=== PATIENT | female | born 1925 | race Caucasian/White ===

== ENCOUNTER 2016-10-04 14:39 | Inpatient (IN) | payer OTHER, MEDICARE ==
[~2016-10-04] VITALS: Ht 142.2 cm; Wt 44.9 kg
--- NOTE | 2016-10-04 15:04 | NUR ---
C/O LEFT HIP PAIN S/P FALL AT [facility] X 2, CAUGHT SHOE ON STEP. DENIES DIZZINESS, WEAKNESS, CHEST PAIN PRIOR TO FALL. PMH" LEFT HIP REPLACEMENT 2011.
--- NOTE | 2016-10-04 16:05 | ED MVC/FALL/TRAUMA COMPLAINT ---
History of Present Illness General Chief Complaint: Fall Stated Complaint: FELL TWICE IN [place] Source: patient Exam Limitations: no limitations Allergies Coded Allergies: Sulfa (Sulfonamide Antibiotics) (N/V 10/04/16) Reconcile Medications Acetaminophen 500 MG TABLET 1 TAB PO Q6 PRN PAIN (Reported) Calcium Carbonate (TUMS) 200 MG CALCIUM (500 MG) TAB.CHEW 1 TAB PO DAILY PRN GI (Reported) Dexlansoprazole (Dexilant) 60 MG CAP.DR.BP 1 CAP PO DAILY GI (Reported) Ergocalciferol (Vitamin D2) (Vitamin D2) 2,000 UNIT TABLET 1 TAB PO BID SUPPLEMENT (Reported) Gabapentin 300 MG CAPSULE 1 CAP PO DAILY NERVE PAIN (Reported) Loteprednol Etabonate (Lotemax) 0.5 % DROPS.GEL 1 DROP OD Q6H RIGHT EYE - ULCER (Reported) Magnesium Oxide (Magnesium) 400 MG CAPSULE 1 CAP PO DAILY SUPPLEMENT ( Reported) Metoprolol Tartrate 25 MG TABLET 1 TAB PO BID HEART/BP (Reported) Sertraline HCl 50 MG TABLET 1 TAB PO BID MENTAL HEALTH (Reported) Solifenacin Succinate (Vesicare) 5 MG TABLET 5 MG PO DAILY BLADDER (Reported) Triage Note: C/O LEFT HIP PAIN S/P FALL AT [place] X 2, CAUGHT SHOE ON STEP. DENIES DIZZINESS, WEAKNESS, CHEST PAIN PRIOR TO FALL. PMH" LEFT HIP REPLACEMENT 2011. Triage Nurses Notes Reviewed? yes HPI: This patient is an 89-year-old female who presented to the emergency department today for evaluation of left hip pain status post fall in [facility] today. The patient reported that she caught her shoe on a step in [facility] and fell onto her left hip. She does have a prior left hip replacement from a previous fracture. The patient denied hitting her head or losing consciousness. She is denying any headaches, visual changes, neck pain, or head pain. The patient reported that the pain in her hip gets up to an 8 out of 10 and with movement sometimes radiates to her knee. The pain is throbbing and constant. She denied any numbness or tingling in her extremities. The patient is not on any blood thinners. No precipitating symptoms such as dizziness, nausea, lightheadedness, or diaphoresis. (KERI FROST,HAILEY) Vital Signs & Intake/Output Vital Signs & Intake/Output Vital Signs Date Time Temp Pulse Resp B/P B/P Pulse O2 O2 Flow FiO2 Mean Ox Delivery Rate 10/06 0904 99.0 69 16 112/44 98 Room Air 10/06 0838 84 108/52 10/06 0015 98.4 84 18 108/52 87 Room Air 10/06 0000 94 Room Air 10/05 2131 87 118/50 10/05 1632 98.7 77 18 112/73 95 Room Air ED Intake and Output 10/06 0000 10/05 1200 Intake Total 1090 Output Total 150 Balance 1090 -150 Intake, IV 260 Intake, Oral 830 Number 2 Bowel Movements Output, Urine 150 Past History Travel History Traveled to [place] past 21 day No Medical History Any Pertinent Medical History? see below for history Cardiovascular: AFIB, Gastrointestinal: GASTROPARESISI Hepatic: SCLERODERMA Musculoskeletal: ARTHRITIS RAYNAUDS History of MRSA: No History of VRE: No History of CDIFF: No Pneumonia Vaccine: 03/16/09 Influenza Vaccine: 03/15/11 Surgical History Surgical History: non-contributory Psychosocial History Who do you live with Patient/Self Services at Home None What is your primary language Malay Tobacco Use: Never used ETOH Use: occasional use Family History Hx Contributory? No (HAILEY SAAVEDRA PA-C) Review of Systems Review of Systems Constitutional: Reports: no symptoms. Eyes: Reports: no symptoms. Ears, Nose, Throat, Mouth: Reports: no symptoms. Respiratory: Reports: no symptoms. Cardiovascular: Reports: no symptoms. Gastrointestinal/Abdominal: Reports: no symptoms. Musculoskeletal: Reports: see HPI. Skin: Reports: no symptoms. Neurological/Psychological: Reports: no symptoms. All Other Systems: Reviewed and Negative (HAILEY SAAVEDRA PA-C) Physical Exam Physical Exam General Appearance: well developed/nourished, no apparent distress, alert, awake Comments: Well-developed well-nourished person in no acute distress HEENT: Normal EENT exam, head normocephalic/atraumatic Pupils equally round and reactive to light. Neck: Supple with no midline tenderness Back: Normal inspection Respiratory: No respiratory distress. Speaking in full sentences Left lower extremity: No effusions overlying erythema or ecchymosis to the joint spaces. Full range of motion of the hip, knee, and ankle. Tenderness to palpation over the anterior aspect of the hip. Dorsalis pedis and posterior tibialis pulses 2+ and strong. No calf tenderness Neuro: Alert oriented x3, cranial nerves II through XII grossly intact. Skin: No appreciable rash on exposed skin, skin is warm and dry. Psych: Mood and affect is normal Core Measures ACS in differential dx? No Severe Sepsis Present: No Septic Shock Present: No (KERI FROST,HAILEY) Progress Differential Diagnosis: aoritic dissection, abd injury, C/T/L spine injury, ext injury, ICH, pelvis injury, pnemothorax, spinal cord injury Diagnostic Imaging: Viewed by Me: Radiology Read. Discussed w/RAD: Radiology Read. Radiology Impression: PATIENT: RASHIDA MALLORY PRESENT AGE: 89 PATIENT ACCOUNT NO: [id number] : [birth year] LOCATION: [facility] ORDERING PHYSICIAN: HAILEY SAAVEDRA PA-C SERVICE DATE: 10/04/16 EXAM TYPE: RAD - XRY-FEMUR, LEFT 2 VIEWS; XRY-HIP 2-3 VIEWS, LEFT; XRY-KNEE COMPLETE LEFT EXAMINATION: XR HIP, LEFT XR FEMUR, LEFT XR KNEE, LEFT CLINICAL INFORMATION : Fall, question fracture COMPARISON: Femur and hip 07/15/2012 FINDINGS: AP pelvis, 2 views left hip: An intramedullary paris with associated compression hip screw is visualized within the proximal left femur. The intramedullary paris appears centered within the intramedullary the fracture line of the prior intratrochanteric fracture is no longer visualized. The alignment appears anatomic. There is no evidence for hardware loosening. There is moderate narrowing of the joint space of the right hip with associated degenerative changes along the acetabular roof. There is no visible right hip fracture. The ilioischial and iliopectineal lines on the right are intact. The ilioischial line is intact on the left. However, there is an acute fracture of the inferior pubic ramus on the left with mild inferior displacement. There is mild irregularity of the left acetabulum. This may be related to changes related to left hip hardware. An underlying fracture is difficult to exclude. Frontal and lateral views of the left femur: Intramedullary paris is visualized within the intramedullary canal of the left femur. Single transverse cortical screws present at the level of the inferior diaphysis. There is no evidence of hardware loosening. The intramedullary paris appears centered within the intramedullary canal. The left femur appears intact. 4 views of the left knee: The inferior aspect of the patient's left intramedullary paris is partially imaged. There is no significant joint effusion. The medial and lateral joint spaces appear relatively maintained. There is no acute fracture or subluxation. No radiopaque foreign body. The alignment appears within normal range. IMPRESSION: 1. Acute fracture of the inferior pubic ramus on the left. 2. Intact left femur intramedullary paris with compression screw. 3. Questionable irregularity of the left acetabulum. Underlying fracture is difficult to exclude. 4. Intact left knee. 5. Mild to moderate degenerative changes of the right hip. DICTATED BY: RAGINI SAINI MD DATE/TIME DICTATED:10/04/161709 BATTERY INSPECTOR:GRANT DATE/TIME TRANSCRIBED:10/04/161709 CONFIDENTIAL, DO NOT COPY WITHOUT APPROPRIATE AUTHORIZATION. <Electronically signed in Other Vendor System> SIGNED BY: RAGINI SAINI MD 10/04/16 3547 Initial ED EKG: AFIB, no ST T wave changes, premature ventricular contraction Comments: 10/04/2016 7:39:01 PM: Positive troponin. This patient was officially signed out to Dr. Marie for telemetry admission. Cardiology has been paged. 10/04/2016 7:41:34 PM: I discussed this patient with on-call park aide, Dr. Graham. He reported that he will pass this message along to Dr. Benjamin, this patient's park aide, who will see this patient first thing in the morning for consultation. 10/04/2016 9:26:37 PM: Discussed this patient with on-call orthopedist, Dr. Ott. He will consult. (KERI FROST,HAILEY) Plan of Care: Orders Procedure Date/time Status Heart Healthy Diet 10/06 L Complete Heart Healthy Diet 10/06 D Active MAGNESIUM 10/06 06 Complete CBC WITHOUT DIFFERENTIAL 10/06 06 Complete BASIC ELECTROLYTES PLUS BUN&CR 10/06 0600 Complete Therapeutic Activities 10/06 UNK Complete Neuromuscular Re-ed 10/06 UNK Complete Gait Training 10/06 UNK Complete Discontinue Telemetry/Monitor 10/06 UNK Active Hemoccult 10/06 UNK Active INCENTIVE SPIROMETRY TRX CHG 10/05 UNK Complete NUTRITIONAL CONSULT 10/05 UNK Active Current Medications Sig/Simón Start time Last Medication Dose Stop Time Status Admin Polyethylene Glycol 17 GM DAILY 10/06 1000 AC (Miralax) Melatonin 5 MG AT BEDTIME 10/05 2200 AC 10/05 (Melatonin) 2128 Senna/Docusate Sodium 1 TAB BID PRN 10/05 1545 AC (Senokot S) Oxycodone/ 1 TAB Q4P PRN 10/05 1145 AC 10/06 Acetaminophen 1059 (Percocet) Docusate Sodium 100 MG DAILY 10/05 1000 AC (Colace) Gabapentin 300 MG DAILY 10/05 1000 AC 10/06 (Neurontin) 0838 Metoprolol Tartrate 12.5 MG BID 10/05 1000 AC 10/06 (Lopressor) 0838 Oxybutynin Chloride 2.5 MG DAILY 10/05 1000 AC 10/06 (Ditropan 2.5MG 0838 Tab(1/2 of a 5mg tab)) Omeprazole 40 MG DAILY AC 10/05 0700 AC 10/06 (Prilosec) 0649 Calcium Carbonate 500 MG DAILY NEEDED PRN 10/04 2230 AC (TUMS) Sertraline HCl 50 MG BID 10/04 2228 AC 10/06 (Zoloft) 0838 Cholecalciferol 2,000 IU BID 10/04 222 AC 10/06 (Vitamin D) 0838 Heparin Sodium 5,000 UNIT Q8 10/04 220 AC 10/06 (Porcine) 0650 Acetaminophen 650 MG Q6P PRN 10/04 2100 AC (Tylenol) Morphine Sulfate 2 MG Q8P PRN 10/04 2100 AC 10/05 (Morphine) 0953 Laboratory Tests 10/06/16 0628: Anion Gap 8, Estimated GFR 59 L, BUN/Creatinine Ratio 28.9 H, Magnesium 2.0, CBC w Diff NO MAN DIFF REQ, RBC 2.94 L, MCV 95.7, MCH 31.8 H, RDW 15.2 H, MPV 9.4, Gran % 60.3, Lymphocytes % 26.6, Monocytes % 8.8, Eosinophils % 3.9, Basophils % 0.4, Absolute Granulocytes 3.4, Absolute Lymphocytes 1.5, Absolute Monocytes 0.5, Absolute Eosinophils 0.2, Absolute Basophils 0, PUBS MCHC 33.2 Departure Departure Disposition: STILL A PATIENT Condition: Stable Clinical Impression Primary Impression: Inferior pubic ramus fracture Qualifiers: Encounter type: initial encounter Fracture type: closed Laterality: left Qualified Code: S32.592A - Other specified fracture of left pubis, initial encounter for closed fracture Secondary Impressions: Elevated troponin Referrals: JOHN RUIZ MD (PCP/Family) Departure Forms: Customer Survey General Discharge Information Admission Note Spoke With: RACHEL BLAIR MD Documentation of Exam: Documentation of any treatments & extenuating circumstances including Concerns Regarding Discharge (functional status, medication knowledge or non-compliance, living conditions, etc.) that warrant an admission rather than observation: [ This patient is an 89-year-old female who presented to the emergency department today for evaluation of left hip pain status post fall at [facility]. Inferior pubic rami fracture on the left with possible acetabular involvement. This patient also has an elevated troponin level to 0.11. History of atrial fibrillation, rate controlled at this time. This patient will need telemetry admission for cardiology consultation, possible echocardiogram, trend labs, serial troponin levels, serial EKGs, orthopedic consultation, and close monitoring. Premature discharge could prove medically harmful.] (HAILEY SAAVEDRA PA-C) PA/ACCESS SERVICES LIBRARIAN Co-Sign Statement Statement: ED Attending supervision documentation- [x] I saw and evaluated the patient. I have also reviewed all the pertinent lab results and diagnostic results. I agree with the findings and the plan of care as documented in the PA's/ACCESS SERVICES LIBRARIAN's documentation. [] I have reviewed the ED Record and agree with the PA's/ACCESS SERVICES LIBRARIAN's documentation. [] Additions or exceptions (if any) to the PAs/ACCESS SERVICES LIBRARIAN's note and plan are summarized below: [] (MOLLY BLANCHARD,MANDEEP Godoy) PA/ACCESS SERVICES LIBRARIAN Co-Sign Statement Statement: ED Attending supervision documentation- [x] I saw and evaluated the patient. I have also reviewed all the pertinent lab results and diagnostic results. I agree with the findings and the plan of care as documented in the PA's/ACCESS SERVICES LIBRARIAN's documentation. pt signed out to me... i discussed with hospitalist... pt to be admitted to tele , ruled out, likely will need out patient rehab. [] Additions or exceptions (if any) to the PAs/ACCESS SERVICES LIBRARIAN's note and plan are summarized below: [] (RODY BLANCHARD,PARKER Figueroa) Critical Care Note Critical Care Note Critical Care Time: 30-74 min (PARKER MARIE MD) Secondary Impressions: Elevated troponin Referrals: SARA BLANCHARD,JOHN Newton (PCP/Family) Departure Forms: Customer Survey General Discharge Information Admission Note Spoke With: RACHEL BLAIR MD Documentation of Exam: Documentation of any treatments & extenuating circumstances including Concerns Regarding Discharge (functional status, medication knowledge or non-compliance, living conditions, etc.) that warrant an admission rather than observation: [ This patient is an 89-year-old female who presented to the emergency department today for evaluation of left hip pain status post fall at [facility]. Inferior pubic rami fracture on the left with possible acetabular involvement. This patient also has an elevated troponin level to 0.11. History of atrial fibrillation, rate controlled at this time. This patient will need telemetry admission for cardiology consultation, possible echocardiogram, trend labs, serial troponin levels, serial EKGs, orthopedic consultation, and close monitoring. Premature discharge could prove medically harmful.] (KERI FROST,HAILEY) PA/ACCESS SERVICES LIBRARIAN Co-Sign Statement Statement: ED Attending supervision documentation- [x] I saw and evaluated the patient. I have also reviewed all the pertinent lab results and diagnostic results. I agree with the findings and the plan of care as documented in the PA's/ACCESS SERVICES LIBRARIAN's documentation. [] I have reviewed the ED Record and agree with the PA's/ACCESS SERVICES LIBRARIAN's documentation. [] Additions or exceptions (if any) to the PAs/ACCESS SERVICES LIBRARIAN's note and plan are summarized below: [] (MOLLY BLANCHARD,MANDEEP Godoy) PA/ACCESS SERVICES LIBRARIAN Co-Sign Statement Statement: ED Attending supervision documentation- [x] I saw and evaluated the patient. I have also reviewed all the pertinent lab results and diagnostic results. I agree with the findings and the plan of care as documented in the PA's/ACCESS SERVICES LIBRARIAN's documentation. pt signed out to me... i discussed with hospitalist... pt to be admitted to tele , ruled out, likely will need out patient rehab. [] Additions or exceptions (if any) to the PAs/ACCESS SERVICES LIBRARIAN's note and plan are summarized below: [] (PARKER MARIE MD) Critical Care Note Critical Care Note Critical Care Time: 30-74 min (PARKER MARIE MD)
--- NOTE | 2016-10-04 16:11 | NUR ---
SEEN BY ER MEDICATED W/ TYLENOL AWAITING X-RAY
--- NOTE | 2016-10-04 16:55 | NUR ---
RETURNED FROM X-RAY
--- NOTE | 2016-10-04 17:25 | RADIOLOGY REPORT ---
EXAMINATION: XR HIP, LEFT XR FEMUR, LEFT XR KNEE, LEFT CLINICAL INFORMATION: Fall, question fracture COMPARISON: Femur and hip 07/15/2012 FINDINGS: AP pelvis, 2 views left hip: An intramedullary paris with associated compression hip screw is visualized within the proximal left femur. The intramedullary paris appears centered within the intramedullary the fracture line of the prior intratrochanteric fracture is no longer visualized. The alignment appears anatomic. There is no evidence for hardware loosening. There is moderate narrowing of the joint space of the right hip with associated degenerative changes along the acetabular roof. There is no visible right hip fracture. The ilioischial and iliopectineal lines on the right are intact. The ilioischial line is intact on the left. However, there is an acute fracture of the inferior pubic ramus on the left with mild inferior displacement. There is mild irregularity of the left acetabulum. This may be related to changes related to left hip hardware. An underlying fracture is difficult to exclude. Frontal and lateral views of the left femur: Intramedullary paris is visualized within the intramedullary canal of the left femur. Single transverse cortical screws present at the level of the inferior diaphysis. There is no evidence of hardware loosening. The intramedullary paris appears centered within the intramedullary canal. The left femur appears intact. 4 views of the left knee: The inferior aspect of the patient's left intramedullary paris is partially imaged. There is no significant joint effusion. The medial and lateral joint spaces appear relatively maintained. There is no acute fracture or subluxation. No radiopaque foreign body. The alignment appears within normal range. IMPRESSION: 1. Acute fracture of the inferior pubic ramus on the left. 2. Intact left femur intramedullary paris with compression screw. 3. Questionable irregularity of the left acetabulum. Underlying fracture is difficult to exclude. 4. Intact left knee. 5. Mild to moderate degenerative changes of the right hip.
[2016-10-04] MEDS ORDERED: SERTRALINE HCL50 MG PO (18:06)
[2016-10-04] MEDS ORDERED: GABAPENTIN300 M2 PO (18:07)
[2016-10-04] MEDS ORDERED: MAGNESIUM400 M1 PO (18:07)
[2016-10-04] MEDS ORDERED: DEXILANT60 M1 PO (18:07)
[2016-10-04] MEDS ORDERED: METOPROLOL TART25 M1 PO (18:07)
[2016-10-04] MEDS ORDERED: VITAMIN D22000 UNIT PO (18:08)
[2016-10-04] MEDS ORDERED: CHOLESTYRAMINE P4 GM PO (18:09)
[2016-10-04] MEDS ORDERED: CENTRUM SILVER1 EAC3 PO (18:09)
[2016-10-04] MEDS ORDERED: LOMOTIL 2.5-0.1 EACH PO (18:09)
[2016-10-04] MEDS ORDERED: ACETAMINOPHEN500 M4 PO (18:10)
[2016-10-04] MEDS ORDERED: TUMS200 MG PO (18:10)
[2016-10-04] MEDS ORDERED: TYLENOL PM EX-1 EACH PO (18:11)
[2016-10-04] MEDS ORDERED: LOTEMAX5 GM OD (18:11)
[2016-10-04] MEDS ORDERED: VESICARE5 M1 PO (18:13)
--- NOTE | 2016-10-04 18:27 | NUR ---
RE-EVAL TBA
--- NOTE | 2016-10-04 18:47 | NUR ---
URINE TRIO AND LABS SENT (BLUE,SST,LAV,CALDERA, PINK)
[2016-10-04 19:14] LABS: ABSOLUTE BASOPHIL COUNT 0 /CUMM (0.0-0.2); ABSOLUTE EOSINOPHIL COUNT 0.2 /CUMM (0.0-0.7); ABSOLUTE GRANULOCYTE CT 6.6 /CUMM (1.4-6.5); ABSOLUTE LYMPH COUNT 1.4 /CUMM (1.2-3.4); ABSOLUTE MONOCYTE COUNT 0.9 /CUMM (0.10-0.60); BASOPHIL % 0.3 % (0.0-2.0); EOSINOPHIL % 2.4 % (0-5); GRANULOCYTE % 72.7 % (42.2-75.2); HEMATOCRIT 30.2 % (37-47); MEAN CORPUSCULAR HGB 31.6 PG (27.0-31.0); MEAN CORPUSCULAR HGB CONC 33.2 G/DL (33.0-37.0); MEAN CORPUSCULAR VOLUME 95.3 FL (81.0-99.0); MEAN PLATELET VOLUME 8.8 FL (7.4-10.4); PLATELET COUNT 203 /CUMM (130-400); RBC DISTRIBUTION WIDTH 15.2 % (11.5-14.5); RED BLOOD CELL CT 3.17 /CUMM (4.20-5.40); WHITE BLOOD CELL COUNT 9.1 /CUMM (4.8-10.8)
--- NOTE | 2016-10-04 19:28 | NUR ---
LAB REPORTS CRITICAL TROPONIN 0.11 REPORT TO KENAN BANKS
--- NOTE | 2016-10-04 19:43 | NUR ---
BOXED LUNCH ORDERED
--- NOTE | 2016-10-04 20:45 | History & Physical ---
MICHAEL KIM MD 10/04/162043: General Information and HPI MD Statement: I have seen and personally examined RASHIDA MALLORY and documented this H&P. The patient is a 89 year old F who presented with a patient stated chief complaint of []. Source of Information: patient, family, old records Exam Limitations: no limitations History of Present Illness: Patient is an 89-year-old female presented with a history of fall, followed by pain in left hip. According to her, she caught shoes on step and fall down. She got up by herself without any difficulty but after few steps she again tripped and partially fall. She fall on her left side. She went home and was having mild to moderate pain 8/ 10. She took tyenolol for it with mild relief. She was told by family to come to hospital but she was reluctant to it. Later when pain become more severe and she decided to come over here. In the [place] ED extracalyceal scan which showed fracture of the left inferior ramus of the pubic bone. She was given Tylenol which helped a little bit. At the time of examination, she was having pain 8 out of 10, which was going down to the knee, increased by movements and decreases on rest. There was no any localized skin changes. She has history of fall 3-4 times in last 1 year, without any trauma. Denies dizziness, weakness, chest pain, nausea, vomiting, dehydration, blurry vision, unconsciousness, weakness in any part of the body, incontinence of stool or urine, fever, cough, abdominal pain. 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 Currently she is having esophageal motility so she is taking soft diet without any choking. She takes time to eat. She is also having Raynauds phenomena for which she protect herself from cold. He is also having hypoactive bladder for which she is on Vesicare. Her most of the medication was given by Dr. santos. Her last visit was 3 days ago. She was told that she is alright. She is following Dr Benjamin,Last visit was 6monts ago. She also had echo recently. Allergies -sulfa medication(upset stomach) Personal history -lives with the son, walks with a cane, denies smoking, alcohol , illicit drug abuse Family history -Mother of a silent IA at the age of 80, Father of lung cancer Dewaterer Operator -Dr. Benjamin Licensing Registration Examiner-Dr. Mosley PCP -Dr. santos Allergies/Medications Allergies: Coded Allergies: Sulfa (Sulfonamide Antibiotics) (N/V 10/04/16) Past History Travel History Traveled to [place] past 21 day No Medical History Cardiovascular: AFIB, Gastrointestinal: GASTROPARESISI Hepatic: SCLERODERMA Musculoskeletal: ARTHRITIS RAYNAUDS History of MRSA: No History of VRE: No History of CDIFF: No Pneumonia Vaccine: 03/16/09 Influenza Vaccine: 03/15/11 Surgical History Surgical History: non-contributory Past Family/Social History Psychosocial History Services at Home: None ETOH Use: occasional use Review of Systems Review of Systems Constitutional: Denies: chills, diaphoresis, fever, malaise, weakness. Cardiovascular: Denies: chest pain, edema, orthopena, palpitations, peripheral edema. Respiratory: Denies: cough, hemoptysis, orthopnea, short of breath, sputum production, stridor. GI: Reports: diarrhea. Denies: abdominal pain, bloating, constipation, distention, bowel incontinence, nausea, vomiting. Genitourinary: Denies: no symptoms. Musculoskeletal: Reports: joint pain, joint swelling. Exam & Diagnostic Data Last 24 Hrs of Vital Signs/I&O Vital Signs Date Time Temp Pulse Resp B/P B/P Pulse O2 O2 Flow FiO2 Mean Ox Delivery Rate 10/04 2216 98.4 88 20 110/70 95 10/04 2143 97.6 81 20 146/64 97 Room Air 10/04 2017 96.8 80 20 140/63 96 Room Air 10/04 1735 97.3 80 20 144/67 97 Room Air 10/04 1502 97.5 84 18 132/67 98 Room Air Intake & Output 10/05 0800 10/05 0000 10/04 1600 Intake Total 0 Output Total 500 Balance -500 Intake, Oral 0 Output, Urine 500 Patient 45.359 kg 43.091 kg Weight Weight Reported by Patient Reported by Patient Measurement Method Physical Exam General Appearance Alert, Oriented X3, Cooperative, No Acute Distress Skin No Rashes, No Breakdown HEENT Atraumatic, PERRLA, EOMI Cardiovascular Normal S1, Normal S2, murmur present Lungs Clear to Auscultation, Normal Air Movement Abdomen Soft, No Tenderness Neurological Normal Speech Extremities No Clubbing, No Cyanosis, No Edema, left hip area - deep tenderness present, no skin changes, ecchymosis is seen Vascular Normal Pulses, Pulses Symmetrical Last 24 Hrs of Labs/Johnnie: Laboratory Tests 10/04/161844: Urine Color YEL, Urine Clarity CLEAR, Urine pH 6.0, Ur Specific [place] 1.010, Urine Protein NEG, Urine Ketones NEG, Urine Nitrite NEG, Urine Bilirubin NEG, Urine Urobilinogen 0.2, Ur Leukocyte Esterase NEG, Ur Microscopic EXAM NOT REQUIRED, Urine Hemoglobin NEG, Urine Glucose NEG 10/04/161834: Anion Gap 12, Estimated GFR > 60, BUN/Creatinine Ratio 31.3 H, Glucose 90, Calcium 9.1, Magnesium 1.3 L, Total Bilirubin 0.4, AST 58 H, ALT 59 H, Alkaline Phosphatase 190 H, Troponin I 0.11 *H, Total Protein 6.4, Albumin 3.7, Globulin 2.7, Albumin/Globulin Ratio 1.4, CBC w Diff NO MAN DIFF REQ, RBC 3.17 L, MCV 95.3, MCH 31.6 H, RDW 15.2 H, MPV 8.8, Gran % 72.7, Lymphocytes % 15.0 L, Monocytes % 9.6 H, Eosinophils % 2.4, Basophils % 0.3, Absolute Granulocytes 6.6 H, Absolute Lymphocytes 1.4, Absolute Monocytes 0.9 H, Absolute Eosinophils 0.2, Absolute Basophils 0, PUBS MCHC 33.2 Diagnostic Data EKG Results NSR, PAC's,Qtc -439 Assessment/Plan Assessment: Patient is an 89-year-old female presented with a history of fall, followed by pain in left hip. According to her, she caught shoes on step and fall down. She got up by herself without any difficulty but after few steps she again tripped and partially fall. She fall on her left side. She went home and was having mild to moderate pain 8/ 10. She took tyenolol for it with mild relief. She was told by family to come to hospital but she was reluctant to it. Later when pain become more severe and she decided to come over here. Pertinent lab - troponin -0.11, hemoglobin-10.0, hematocrit 30.2, AST/A LT-58/59 , alkaline phosphatase-190, X-ray - acute fracture of inferior pubic ramus on the left side, intact left femur [id number] with compression screw, intact left knee, mild-to- moderate decline degenerative changes in the right hip Echocardiogram 2012 - LVEF 40-45%, mild aortic sclerosis, hypokinesia of the distal septum and apex. Vital signs at the time of admission-temperature 97.5, pulse 84, respiratory rate 18, blood pressure 132/67, SPO2 98% on room air Plan - Fractures of left pubic ramus secondary to fall * Will take fall precautions * We will do CT scan of the pelvis to rule out other fractures * CT scan of the pelvis. She shows the same fracture which is undisplaced * We placed a consult for orthopedics and followed the recommendation * Discussed with surgical PA/SUREKHA, advised pain medication, PT/OT, STR, DVT prophylaxis * We will give pain medication according to the pain score * PT/OT * Heparin for DVT prophylaxis Coronary artery disease and history of paroxysmal atrial fibrillation * Patient is having history of paroxysmal atrial flutter ablation not on any anticoagulation * We will admit him to telemetry floor for observation of any arrhythmias * EKG were showing NSR along with PACs * Troponins come back positive 0.11, we will do serial troponins and EKGs * We will place a consult for door frame assembler machine to get their opinion/Yobani Benjamin MD * We will continue tablet metoprolol 25 mgs PO BID Hypomagnesemia * Patient is having history of hypomagnesemia and was on treatment, probably secondary to the diarrhea. She occasionally get diarrhea and take Lomotil sometimes. * She recently stopped the magnesium tablets * We will give injection, magnesium 1 gram IV followed by magnesium tab 65 BID Scleroderma * She is having difficulty in swallowing, especially the esophageal phase of the swallowing. She takes time to eat, but she is able to swallow without any difficulty. She is taking soft diet. * We will order soft and liquid diet and tomorrow will take dietary consultation Chronic anemia * We will do stool for occult blood to rule out any anemia secondary to GI bleed /colon cancer Osteoporosis * She is having history of osteoporosis and had DEXA recently at [facility]. She is on vitamin D supplementation * We need to know if she is taking any bisphosphonates from the pharmacy. She is using [facility]. Hypoactive bladder - * We will continue Vesicare at home doses. Please confirm the dose from pharmacy. DVT prophylaxis-heparin Diet -heart healthy, soft, will take dietary consult tomorrow. CODE STATUS -DNR/DNI, patient is having her own living will at [facility] As Ranked By This Provider Problem List: 1. Inferior pubic ramus fracture Qualifiers Encounter type: initial encounter Fracture type: closed Laterality: left Qualified Code: S32.592A - Other specified fracture of left pubis, initial encounter for closed fracture 2. Elevated troponin 3. Scleroderma 4. Raynaud's disease 5. Paroxysmal atrial fibrillation Core Measures/Miscellaneous Acute Coronary Syndrome ACS Diagnosis: No Cerebrovascular Accident CVA/TIA Diagnosis: No Congestive Heart Failure CHF Diagnosis: No Venous Thromboembolism VTE Risk Factors: Age > 40 [facility] prophylaxis d/t: No contraindications No VTE Pharm Prophylaxis d/t: No contraindications VTE Diagnosis: No VTE Type: NONE VTE Confirmed by (Test): NONE Severe Sepsis Severe Sepsis Present: No Septic Shock Septic Shock Present: No Miscellaneous Documentation Attending Case Discussed With: RACHEL BLAIR MD Primary Care Physician: JOHN RUIZ MD A Patient sees these Specialists Dewaterer Operator-Dr. Benjamin Licensing Registration Examiner - Dr. Mosley Level of Patient Care: Telemetry RACHAEL FERNANDES 10/04/162046: General Information and HPI Allergies/Medications Home Med list Acetaminophen 500 MG TABLET 1 TAB PO Q6 PRN PAIN (Reported) Calcium Carbonate (TUMS) 200 MG CALCIUM (500 MG) TAB.CHEW 1 TAB PO DAILY PRN GI (Reported) Dexlansoprazole (Dexilant) 60 MG CAP.DRAliaBP 1 CAP PO DAILY GI (Reported) Ergocalciferol (Vitamin D2) (Vitamin D2) 2,000 UNIT TABLET 1 TAB PO BID SUPPLEMENT (Reported) Gabapentin 300 MG CAPSULE 1 CAP PO DAILY NERVE PAIN (Reported) Loteprednol Etabonate (Lotemax) 0.5 % DROPS.GEL 1 DROP OD Q6H RIGHT EYE - ULCER (Reported) Magnesium Oxide (Magnesium) 400 MG CAPSULE 1 CAP PO DAILY SUPPLEMENT ( Reported) Metoprolol Tartrate 25 MG TABLET 1 TAB PO BID HEART/BP (Reported) Sertraline HCl 50 MG TABLET 1 TAB PO BID MENTAL HEALTH (Reported) Solifenacin Succinate (Vesicare) 5 MG TABLET 5 MG PO DAILY BLADDER (Reported) Resident Review Statement Resident Statement: examined this patient, discussed with university internship, agreed with university internship, discussed with family, reviewed EMR data (avail), discussed with nursing , discussed with case mgmt, reviewed images, amended to note Other Findings: 89-year-old woman with a past medical history of colon cancer status post chemotherapy and radiation, GERD, neuropathy pain, remote history of A. fib, scleroderma, arthritis, gastroparesis presents to the ED with complaint of left hip pain after she had a witnessed mechanical fall in the [employer] earlier today. According to the patient she was at the [employer] this morning when she tripped over her shoe and fell on the left side. Denies any chest pain, palpitations, diaphoresis, any seizure-like activity, loss of consciousness, headache, decreased by mouth intake for the past few days prior to th eevent. She was able to get up and ambulate around on her own, however had another episode where she nearly fell down. Of note, she was able to ambulate along fine, and went home ambulating on her feet. When she went home, she stated that she experienced pain that she graded as a 8 out of 10 located along the left hip with radiation down to her left knee. She last saw Dr. Benjamin about 6 month sago, and reportedly were normal. Family history pertinent for pancreatic cancer in sister and lung cancer in brother. Social history she does not smoke, drink and lives with her family. Vitals at the time of admission blood pressure 132/67, respiratory rate 18, pulse 84, afebrile saturating 98% on room air. On physical exam, She is alert and oriented 3 and in no acute distress, lying comfortably in bed. HEENT revealed PERRLA, dry mucous membranes. Examination of the neck revealed no JVD of about 5 cm, no cervical lymphadenopathy. Cardiovascular exam pertinent for normal S1, S2, no murmurs rubs or gallops appreciated. Chest was clear to auscultation bilaterally. Abdominal exam is benign with abdomen soft, nontender, nondistended with normal bowel sounds heard in all 4 quadrants. Examination of the lower extremities did not reveal any edema. There was tenderness to palpation around the left lateral hip, no erythema, or bruise identified. There is no shortening of the left limb compared to right,a and sensation and motor strength are preserved 5/5 . Neuro exam was grossly unremarkable. Labs pertinent for her normocytic anemia with an H&H of 10.0/30.2, normal white blood cell count of 9100, platelet count 203,000. Serum chemistries reveal a sodium of 141, potassium of 4.0, by carb of 24, anion gap of 12, BUN 25 and creatinine of 0.8. LFTs pertinent for total bili of 0.4, AST/ALT of 58/59 and alkaline phosphatase of 190. First set of troponin elevated at 0.11. UA was unremarkable. X-ray of the left hip, femur, knee revealed acute fracture of the inferior pubic ramus, intact left femur intramedullary paris with compression screw, questionable irregularity of the left acetabulum, intact left knee with mild to moderate degenerative changes of the right hip. Last echocardiogram was done in December 2011 which revealed a hypokinetic apex with mildly abnormal left ventricular ejection fraction estimated at 40-45%, mild right atrial dilatation, no aortic stenosis and mild pulmonary hypertension with an estimated RV systolic pressure of 58 m of mercury. In the ER she received Tylenol 650 mg oral 1. Assessment and plan Admit patient to telemetry given elevated troponins #Left inferior pubic ramus fracture status post mechanical fall Conservative management for now Orthopedic consult Optimize pain management with IV pain medications Continue to monitor H&H for any further acute drop. Continue on vitamin D supplements CT scan of pelvis to further evaluate for hematoma PT OT eval in a.m. #NSTEMI Most likely secondary to demand ischemia Trend troponins and EKG at midnight and 6 AM Echocardiogram to further evaluate for any regional wall motion abnormalities and evaluate EF Cardiology consult with Dr. Benjamin in a.m. #History of atrial fibrillation not on anticoagulation Currently rate control Continue home dose of Metoprolol 12.5mg BID PO #Normocytic anemia Most likely secondary to iron deficiency versus acute blood loss anemia Follow-up iron studies, vitamin B12 Guaiac stools #Transaminitis in setting of scleroderma F/U repeat LFTs in AM #Urinary incontinence Continue oxybutryn - DVT prophylaxis On heparin 5000units 3 times a day subcutaneous Diet Heart healthy CODE STATUS DNR/DNI RACHEL BLAIR 10/05/16 0151: Attending MD Review Statement Attending Statement Attending MD Statement: examined this patient, discuss w/resident/PA/HEAD LOADER, agreed w/resident/PA/HEAD LOADER, reviewed EMR data (avail), reviewed images, amended to note Attending Assessment/Plan: CC: fall PMH: Scleroderma, GERD, paroxysmal A. fib, history of colorectal cancer S/P chemotherapy and radiation unclear about resection Patient came to ER for left hip pain after fall in [employer] today. According to patient she possibly tripped on her shoe on t[employer]ism step and fell onto hip, she had prior hip surgery on left side after previous previous fracture. She went home, weighted for couple of hours, pain was persistent so came to ER when her daughter insisted her to go. Patient has a very high pain threshold. Pain and hip in ER was 8/10 in intensity, nonradiating. Patient denied any syncopal or presyncopal symptoms, palpitations, headache, vision problems before or after fall. She did not have any loss of consciousness, seizures, head trauma after fall. Vitals: Unremarkable. On examination: A O 3, cooperative, no acute distress, neck supple, JVD normal, no lymphadenopathy, mucosa moist, no focal neurological deficit, no dependent edema, no obvious skin rashes or inflammation, left hip tenderness palpation on lateral aspect, buttock, thigh. Peripheral pulses and sensations intact CVS: S1- S2, RRR. RS: Clear to auscultate bilaterally. Abdomen: Soft, NT, ND, bowel sounds present. Labs: Hemoglobin 10, MCV 95, RDW 15, BUN 25, AST 58, ALT 59, alkaline phosphatase 190, troponin 0.11, UA unremarkable. EKG: Unremarkable X-ray knee, x-ray hip, x-ray femur 1. Acute fracture of the inferior pubic ramus on the left. 2. Intact left femur intramedullary paris with compression screw. 3. Questionable irregularity of the left acetabulum. Underlying fracture is difficult to exclude. 4. Intact left knee. 5. Mild to moderate degenerative changes of the right hip. A and P Patient came to ER for mechanical fall, was complaining of left hip pain, x-ray shows inferior pubic ramus fracture. This fracture appears to be after trivial trauma. Need to exclude any other fracture, [place] damage, vascular injury. Meanwhile patient's troponin was elevated in ER. Patient completely asymptomatic , given her age and comorbidities need to further monitor for elevated troponin. # Left inferior pubic rami fracture # Elevated troponin # Mechanical fall # History of A. fib paroxysmal not on AC # History of scleroderma # Transaminitis with elevated alkaline phosphatase : This appears to be chronic, no right upper quadrant tenderness. # Chronic anemia - Admit to telemetry at least overnight - Telemetry monitoring - Trend troponin, serial EKG - Cardiology consult in a.m., - Adequate pain control - Orthopedic consult - CT pelvis without contrast - Check magnesium, replace if low - OT PT evaluation - Evaluate for short-term rehabilitation - Continue all her medications - Repeat LFT in a.m. along with CBC and BMP - DVT prophylaxis with heparin
--- NOTE | 2016-10-04 21:30 | NUR ---
PATIENT REMAINS ALERT ORIENTED NAD EVAL BY HOUSE STAFF
--- NOTE | 2016-10-04 21:34 | NUR ---
BED 185-2
--- NOTE | 2016-10-04 21:48 | NUR ---
REPORT GIVEN TO TELEMETRY
[2016-10-04 22:17] VITALS: BP 110/70
--- NOTE | 2016-10-04 22:56 | CT SCAN REPORT ---
EXAMINATION: CT PELVIS WITHOUT CONTRAST CLINICAL INFORMATION: Fall with fracture of left pubic ramus COMPARISON: Radiographs from earlier today. CT 02/08/2013 TECHNIQUE: Helical scanning was performed with submillimeter collimation through the pelvis. Sagittal and coronal multiplanar 2-D reconstructions were obtained. DLP: 1012 mGy-cm FINDINGS: PELVIS: Vascular calcifications are present. Colonic diverticulosis without diverticulitis. No inflammatory changes. No free air or free fluid. No lymphadenopathy. No intrapelvic hematoma. Mild anasarca. Multiple soft tissue calcifications in the subcutaneous fat of the gluteal region. OSSEOUS STRUCTURES: There is a comminuted fracture of the left inferior pubic ramus. No significant displacement of the major fracture fragments. There are no additional acute fractures. The bones are osteopenic. Degenerative changes at the lower lumbar spine. The pubic symphysis is appropriately aligned with chondrocalcinosis. Sacroiliac joints are intact. Partial visualization of left femoral intramedullary nail with femoral neck screw. Moderate degenerative changes of both hips with joint space narrowing and osteophyte formation. Enthesophyte formation at the ischial tuberosity bilaterally. IMPRESSION: Essentially nondisplaced left inferior pubic ramus fracture. There are no additional fractures.
--- NOTE | 2016-10-04 23:04 | Cons- Orthopedic ---
PAULINE FLORENTINO 10/04/16 2257: General Information and HPI Consulting Request Date of Consult: 10/04/16 Requested By: RACHEL BLAIR MD Reason for Consult: PELVIC FRACTURE Source of Information: old records History of Present Illness: Pt is an 89 yo F with a pmh significant for paroxysmal afib/flutter (s/p ablation), colorectal CA (s/p chemo/xrt), hypertension, gerd, chronic anemia, gastroparesis, and arthritis who is also s/p L hip IMHS due to fracture in 2012. Pt presented to the ED today after a fall at [employer]. Pt states that the fall was due to catching her shoe on a step and falling twice. She denied any precipitating symptoms or loss of consiousness and immedicately c/o L hip pain. Workup in the ED revealed a nondisplaced left inferior pubic ramus fracture. Hip x-ray revealed an intact left femur intramedullary paris with compression screw. Troponins were elevated on admission and pt was admitted to the medical service on the telemetry floor. Orthopedic consultation is being requested for recommendations. Allergies/Medications Allergies: Coded Allergies: Sulfa (Sulfonamide Antibiotics) (N/V 10/04/16) Home Med List: Acetaminophen 500 MG TABLET 1 TAB PO Q6 PRN PAIN (Reported) Calcium Carbonate (TUMS) 200 MG CALCIUM (500 MG) TAB.CHEW 1 TAB PO DAILY PRN GI (Reported) Dexlansoprazole (Dexilant) 60 MG CAP.DR.BP 1 CAP PO DAILY GI (Reported) Ergocalciferol (Vitamin D2) (Vitamin D2) 2,000 UNIT TABLET 1 TAB PO BID SUPPLEMENT (Reported) Gabapentin 300 MG CAPSULE 1 CAP PO DAILY NERVE PAIN (Reported) Loteprednol Etabonate (Lotemax) 0.5 % DROPS.GEL 1 DROP OD Q6H RIGHT EYE - ULCER (Reported) Magnesium Oxide (Magnesium) 400 MG CAPSULE 1 CAP PO DAILY SUPPLEMENT ( Reported) Metoprolol Tartrate 25 MG TABLET 1 TAB PO BID HEART/BP (Reported) Sertraline HCl 50 MG TABLET 1 TAB PO BID MENTAL HEALTH (Reported) Solifenacin Succinate (Vesicare) 5 MG TABLET 5 MG PO DAILY BLADDER (Reported) Past History Medical History Cardiovascular: AFIB, hypertension Gastrointestinal: GASTROPARESIS Hepatic: SCLERODERMA Musculoskeletal: ARTHRITIS RAYNAUDS Surgical History Pertinent Surgical History: HS left hip, polypectomy Psychosocial History Services at Home: None ETOH Use: occasional use Review of Systems Review of Systems: Positive for a left hip and buttock pain. Otherwise negative for fever, chills, headache, dizziness, chest pain, palpitations, shortness of breath, cough, nausea, vomiting, diarrhea, constipation, abdominal pain, dysuria, oliguria, hematuria, weakness, numbness, tingling. Exam & Diagnostic Data Vital Signs and I&O Vital Signs Date Time Temp Pulse Resp B/P B/P Pulse O2 O2 Flow FiO2 Mean Ox Delivery Rate 10/04 2216 98.4 88 20 110/70 95 10/04 2143 97.6 81 20 146/64 97 Room Air 10/04 2016 96.8 80 20 140/63 96 Room Air 10/04 1735 97.3 80 20 144/67 97 Room Air 10/04 1502 97.5 84 18 132/67 98 Room Air Intake & Output 10/04 1600 10/04 0800 10/04 0000 10/03 1600 10/03 0800 10/03 0000 Intake Total Output Total Balance Patient 94 lb 15.99 oz Weight Weight Reported by Patient Measurement Method Physical Exam: Gen.: Patient is resting, but easily arousable. No acute distress. Cardiac: Irregular Pulmonary: Lungs are clear bilaterally. Extremities: There is tenderness of the left lateral thigh fpc between the knee and greater trochanter. The tenderness extends superiorly into the left hip and buttock. Lower extremity sensation is intact. Patient is able to move her toes. Strength of dorsiflexion and plantarflexion 3 out of 5. Assessment/Plan Assessment/Plan Pt is an 89 yo F with an extensive medical hx who suffered a nondisplaced left inferior pubic ramus fracture after mechanical fall x 2 at [employer] earlier today. L hip [facility] hardware from a previous fracture is intact. Pt has elevated troponins, which have so far been attributed most likely to demand ischemia. Recommendations: -No urgent surgical intervention is indicated at this time, as this a stable pelvic fracture. -Continue medical workup of elevated troponins. -When pt is medically clear, she may ambulate with physical therapy and weight bear as tolerated with a walker. -DVT ppx as per routine inpatient. -Anticipate the need for short term rehab. -This was discussed with Dr. Ott and he agrees with the plan. Consult Acknowledgment - Thank you for your consult request. AYO OTT MD 10/05/16 0726: Assessment/Plan Consult Acknowledgment - Thank you for your consult request. Attending MD Review Statement Attending Statement Attending MD Statement: discuss w/resident/PA/WEATHER STRIPPER, agreed w/resident/PA/WEATHER STRIPPER, reviewed EMR data (avail), reviewed images
--- NOTE | 2016-10-05 01:52 | Admission Certification ---
Admission Certification Certification Statement - As attending physician, I certify that at the time of - admission, based on clinical presentation, severity of - symptoms, need for further diagnostic testing and - therapeutic interventions, and risk of adverse outcomes - without in-hospital treatment, in my clinical assessment, - this patient requires an acute hospital stay for a minimum - of two nights or longer. I have also considered psychsocial - factors such as support system, advanced age, financial - issues, cognitive issues, and failed out-patient treatments, - past re-admission history, safety of patient, and lack of - compliance as applicable. Specific rationale supporting this admission is: Fall, left inferior pubic rami fracture, elevated troponin
[2016-10-05 08:17] LABS: ABSOLUTE BASOPHIL COUNT 0 /CUMM (0.0-0.2); ABSOLUTE EOSINOPHIL COUNT 0.1 /CUMM (0.0-0.7); ABSOLUTE GRANULOCYTE CT 4.2 /CUMM (1.4-6.5); ABSOLUTE LYMPH COUNT 0.8 /CUMM (1.2-3.4); ABSOLUTE MONOCYTE COUNT 0.5 /CUMM (0.10-0.60); BASOPHIL % 0.5 % (0.0-2.0); EOSINOPHIL % 2.3 % (0-5); GRANULOCYTE % 73.3 % (42.2-75.2); MEAN CORPUSCULAR HGB 31.8 PG (27.0-31.0); MEAN CORPUSCULAR HGB CONC 33.6 G/DL (33.0-37.0); MEAN CORPUSCULAR VOLUME 94.5 FL (81.0-99.0); MEAN PLATELET VOLUME 9.1 FL (7.4-10.4); PLATELET COUNT 185 /CUMM (130-400); RBC DISTRIBUTION WIDTH 15.2 % (11.5-14.5); RED BLOOD CELL CT 3.07 /CUMM (4.20-5.40); WHITE BLOOD CELL COUNT 5.8 /CUMM (4.8-10.8)
[2016-10-05 08:55] VITALS: BP 111/55
--- NOTE | 2016-10-05 09:13 | PN- Housestaff ---
AHSER BLANCHARD,JAS 10/05/16 0913: Subjective Follow-up For: Left inferior pubic rami fracture Elevated troponin Complaints: c/o left hip pain 7-8/10 in severity radiation to lt. knee Tele-Events Since Last Visit: Normal sinus rhythm Subjective: Patient is comfortably lying in bed. Had difficulty sleeping last night because of left hip pain. Complains of left hip pain 6-8/10 in severity with any movements in left hip joint radiating down to her left knee. Denies any headache, nausea, vomiting, chest pain, shortness of breath, palpitation, abdominal pain, urinary symptoms. Review of Systems Constitutional: Denies: chills, fever. EENTM: Denies: visual changes. Cardiovascular: Denies: chest pain, orthopena, palpitations, peripheral edema. Respiratory: Denies: cough, orthopnea, sputum production. Gastrointestinal: Denies: abdominal pain, diarrhea, nausea, vomiting. Genitourinary: Denies: dysuria. Musculoskeletal: Reports: joint pain. Skin: Denies: erythema. Neurological/Psychological: Denies: confusion, dementia, headache, numbness. Objective Last 24 Hrs of Vital Signs/I&O Vital Signs Date Time Temp Pulse Resp B/P B/P Pulse O2 O2 Flow FiO2 Mean Ox Delivery Rate 10/05 1059 Room Air Room Air 10/05 0952 74 111/55 10/05 0855 97.7 74 16 111/55 96 Room Air 10/04 2217 98.4 88 20 110/70 95 10/04 2143 97.6 81 20 146/64 97 Room Air 10/04 2017 96.8 80 20 140/63 96 Room Air 10/04 1735 97.3 80 20 144/67 97 Room Air 10/04 1502 97.5 84 18 132/67 98 Room Air Intake & Output 10/05 1600 10/05 0800 10/05 0000 Intake Total 0 Output Total 150 500 Balance -150 -500 Intake, Oral 0 Output, Urine 150 500 Patient 99 lb 15.99 oz Weight Weight Reported by Patient Measurement Method Physical Exam General Appearance: Alert, Oriented X3, Cooperative, Mild Distress Skin: No Rashes Skin Temp/Moisture Exam: Warm/Dry Sepsis Skin Exam (color): Normal for Ethnicity HEENT: Atraumatic, PERRLA, EOMI, Mucous Membr. moist/pink Neck: Supple, No JVD Cardiovascular: Normal S1, Normal S2, No Murmurs Lungs: Clear to Auscultation, Normal Air Movement Abdomen: Normal Bowel Sounds, Soft, No Tenderness Neurological: Normal Gait, Normal Speech, Strength at 5/5 X4 Ext, Normal Tone, Sensation Intact Extremities: No Edema, Normal Pulses Vascular: Pulses Symmetrical Current Medications: Current Medications Sig/Simón Start time Last Medication Dose Route Stop Time Status Admin Acetaminophen 650 MG Q6P PRN 10/04 2100 AC PO Acetaminophen 1,000 MG Q6P PRN 10/04 2100 DC IV Acetaminophen 0 .STK-MED ONE 10/04 1613 DC PO Acetaminophen 650 MG ONCE ONE 10/04 1600 DC 10/04 PO 10/04 1601 1612 Calcium Carbonate 500 MG DAILY NEEDED PRN 10/04 2230 AC PO Cholecalciferol 2,000 IU BID 10/04 2227 AC 10/05 PO 0952 Cholestyramine Resin 1 PAC BID PRN 10/04 2345 DC PO Diphenoxylate HCl/ 2.5 MG TID PRN 10/04 2345 DC Atropine PO Docusate Sodium 100 MG DAILY 10/05 1000 AC PO Gabapentin 300 MG DAILY 10/05 1000 AC 10/05 PO 0952 Heparin Sodium 5,000 UNIT Q8 10/04 2199 AC 10/05 (Porcine) SC 0622 Magnesium Chloride 64 MG BID 10/04 2318 DC PO Magnesium Oxide 400 MG .STK-MED ONE 10/05 0030 DC PO 10/05 0031 Magnesium Oxide 400 MG ONE ONE 10/04 2345 DC 10/05 PO 10/04 2346 0032 Magnesium Sulfate 1 GM ONCE ONE 10/04 2330 CAN Dextrose/Water 100 ML IV 10/05 0329 Melatonin 5 MG AT BEDTIME 10/05 2200 AC 10/05 PO 0032 Metoprolol Tartrate 12.5 MG BID 10/05 1000 AC 10/05 PO 0952 Metoprolol Tartrate 12.5 MG BID 10/048 DC PO Morphine Sulfate 2 MG Q8P PRN 10/04 2100 AC 10/05 IV 0953 Omeprazole 40 MG DAILY AC 10/05 0700 AC 10/05 PO 0622 Oxybutynin Chloride 2.5 MG DAILY 10/05 1000 AC 10/05 PO 0951 Oxycodone/ 1 TAB Q4P PRN 10/05 1145 AC Acetaminophen PO Sertraline HCl 50 MG BID 10/05 2227 AC 10/05 PO 0952 Last 24 Hrs of Lab/Johnnie Results Last 24 Hrs of Labs/Mics: Laboratory Tests 10/05/16 0632: Anion Gap 9, Estimated GFR > 60, BUN/Creatinine Ratio 33.8 H, Total Bilirubin 0.4, Direct Bilirubin 0.2, AST 35, ALT 48, Alkaline Phosphatase 166 H, Troponin I 0.06, Total Protein 5.8 L, Albumin 3.2 L, CBC w Diff NO MAN DIFF REQ, RBC 3.07 L, MCV 94.5, MCH 31.8 H, RDW 15.2 H, MPV 9.1, Gran % 73.3, Lymphocytes % 14.8 L, Monocytes % 9.1, Eosinophils % 2.3, Basophils % 0.5, Absolute Granulocytes 4.2, Absolute Lymphocytes 0.8 L, Absolute Monocytes 0.5, Absolute Eosinophils 0.1, Absolute Basophils 0, PUBS MCHC 33.6 10/05/16 0035: Magnesium 1.4 L, Iron 28 L, TIBC 326, Ferritin 20.5, Troponin I 0.09 10/04/16 1845: Urine Color YEL, Urine Clarity CLEAR, Urine pH 6.0, Ur Specific [place] 1.010, Urine Protein NEG, Urine Ketones NEG, Urine Nitrite NEG, Urine Bilirubin NEG, Urine Urobilinogen 0.2, Ur Leukocyte Esterase NEG, Ur Microscopic EXAM NOT REQUIRED, Urine Hemoglobin NEG, Urine Glucose NEG 10/04/16 1835: Anion Gap 12, Estimated GFR > 60, BUN/Creatinine Ratio 31.3 H, Glucose 90, Calcium 9.1, Magnesium 1.3 L, Total Bilirubin 0.4, AST 58 H, ALT 59 H, Alkaline Phosphatase 190 H, Troponin I 0.11 *H, Total Protein 6.4, Albumin 3.7, Globulin 2.7, Albumin/Globulin Ratio 1.4, CBC w Diff NO MAN DIFF REQ, RBC 3.17 L, MCV 95.3, MCH 31.6 H, RDW 15.2 H, MPV 8.8, Gran % 72.7, Lymphocytes % 15.0 L, Monocytes % 9.6 H, Eosinophils % 2.4, Basophils % 0.3, Absolute Granulocytes 6.6 H, Absolute Lymphocytes 1.4, Absolute Monocytes 0.9 H, Absolute Eosinophils 0.2, Absolute Basophils 0, PUBS MCHC 33.2 Assessment/Plan Assessment: This is 89-year-old female with past medical history of paroxysmal A. fib not on anticoagulation due to history of GI bleed, scleroderma, anemia, transaminitis presented from home after sustaining a mechanical fall resulting in left pubic rami fracture, found to have elevated troponin without any chest pain or EKG changes. 1. Left pubic rami fracture - Continue pain management - As per orthopedic surgery, no surgical intervention, conservative management - Physical therapy - Out of bed to chair - Ambulation as tolerated - Continue supplemental vitamin D 2. Paroxysmal A. fib - Currently in normal sinus rhythm - Continue home dose metoprolol for rate control - No anticoagulation due to history of GI bleed 3. Elevated troponin - Noted elevated troponin in absence of any chest pain or EKG changes, likely demand ischemia - Patient had history of tacosubo cardiomyopathy 3. History of depression Continue Zoloft 4. Normocytic Anemia - History of previous GI bleed from AVMs -H&H stable 5. DVT prophylaxis subcutaneous heparin 6. DNR/DNI Problem List: 1. Inferior pubic ramus fracture 2. Elevated troponin 3. Paroxysmal atrial fibrillation 4. Scleroderma Pain Ratin Pain Location: left hip Pain Goal: Pain 4 or less Pain Plan: morphine, percocet, tylenol Tomorrow's Labs & Rationales: cbc DVT/Prophylaxis: pharmacological MYRA CHAPARRO MD 10/05/16 1341: Attending Review Statement Attending Statement Attending MD Statement: examined this patient, discuss w/resident/PA/CARBON COATER MACHINE OPERATOR, agreed w/resident/PA/CARBON COATER MACHINE OPERATOR, reviewed EMR data (avail) Attending Assessment/Plan: 89F PMH left hip fracture s/p repair in 2011, scleroderma with esophageal dysmotility, paroxysmal atrial flutter, colorectal cancer s/p chemotherapy/ radiation (2000), GERD admitted for mechanical fall while at [employer] without preceding symptoms or loss of consciouss resulting in left inferior pubic ramus fracture that is stable. Patient reports pain when she moves but otherwise has no complaints and pain is relatively well controlled. She reports chronic difficulty swallowing and doesn 't eat much because of this. Troponin was mildly elevated on admission but has peaked without EKG changes or telemetry events. Patient denies ever having chest pain or palpitations. 1. Left inferior pubic ramus fracture, closed, stable 2. Demand ischemia 3. Mechanical fall 4. Scleroderma 5. Esophageal dysmotility Plan - Continue on telemetry - Follow cardiology recommendations - Discontinue IV Morphine - Start Percocet 1 tab q6h PRN moderate pain, 2 tab q6h severe pain - Start Senna and Colace to prevent opioid induced constipation - Continue home medications - Follow orthopedic recommendations - PT eval - DVT PPx
--- NOTE | 2016-10-05 10:41 | Cons- Cardiology ---
General Information and HPI Consulting Request Date of Consult: 10/05/16 Requested By: RACHEL BLAIR MD Reason for Consult: Abnormal troponin level History of Present Illness: The patient is an 89-year-old female with history of hypertension and atrial fibrillation, who is followed in the office by Dr. Benjamin. She had a cardiac catheterization in 2011 which did not reveal evidence of obstructive coronary artery disease, and she was diagnosed at that time with takotsubo cardiomyopathy. She now presents after a fall. Patient reports that she tripped on a step and fell on her left side. She presented to the emergency department where she was found to have a left anterior pubic ramus fracture. She is noted to have mildly elevated troponins. She has had no recent cardiac symptoms. No chest pain. No shortness of breath. No palpitations. No diaphoresis. No lightheadedness or dizziness. No nausea or vomiting. Allergies/Medications Allergies: Coded Allergies: Sulfa (Sulfonamide Antibiotics) (N/V 10/04/16) Home Med List: Acetaminophen 500 MG TABLET 1 TAB PO Q6 PRN PAIN (Reported) Calcium Carbonate (TUMS) 200 MG CALCIUM (500 MG) TAB.CHEW 1 TAB PO DAILY PRN GI (Reported) Dexlansoprazole (Dexilant) 60 MG CAP.BP 1 CAP PO DAILY GI (Reported) Ergocalciferol (Vitamin D2) (Vitamin D2) 2,000 UNIT TABLET 1 TAB PO BID SUPPLEMENT (Reported) Gabapentin 300 MG CAPSULE 1 CAP PO DAILY NERVE PAIN (Reported) Loteprednol Etabonate (Lotemax) 0.5 % DROPS.GEL 1 DROP OD Q6H RIGHT EYE - ULCER (Reported) Magnesium Oxide (Magnesium) 400 MG CAPSULE 1 CAP PO DAILY SUPPLEMENT ( Reported) Metoprolol Tartrate 25 MG TABLET 1 TAB PO BID HEART/BP (Reported) Sertraline HCl 50 MG TABLET 1 TAB PO BID MENTAL HEALTH (Reported) Solifenacin Succinate (Vesicare) 5 MG TABLET 5 MG PO DAILY BLADDER (Reported) Current Medications: Current Medications Sig/Simón Start time Last Medication Dose Route Stop Time Status Admin Acetaminophen 650 MG Q6P PRN 10/04 2100 AC PO Acetaminophen 1,000 MG Q6P PRN 10/04 2100 AC IV Acetaminophen 0 .STK-MED ONE 10/04 1613 DC PO Acetaminophen 650 MG ONCE ONE 10/04 1600 DC 10/04 PO 10/04 1601 1612 Calcium Carbonate 500 MG DAILY NEEDED PRN 10/04 2230 AC PO Cholecalciferol 2,000 IU BID 10/04 2227 AC 10/05 PO 0952 Cholestyramine Resin 1 PAC BID PRN 10/04 2345 DC PO Diphenoxylate HCl/ 2.5 MG TID PRN 10/04 2345 DC Atropine PO Docusate Sodium 100 MG DAILY 10/05 1000 AC PO Gabapentin 300 MG DAILY 10/05 1000 AC 10/05 PO 0952 Heparin Sodium 5,000 UNIT Q8 10/04 2200 AC 10/05 (Porcine) SC 0622 Magnesium Chloride 64 MG BID 10/04 2318 DC PO Magnesium Oxide 400 MG .STK-MED ONE 10/05 0030 DC PO 10/05 0031 Magnesium Oxide 400 MG ONE ONE 10/04 2345 DC 10/05 PO 10/04 2346 0032 Magnesium Sulfate 1 GM ONCE ONE 10/04 2330 CAN Dextrose/Water 100 ML IV 10/05 0329 Melatonin 5 MG AT BEDTIME 10/05 2200 AC 10/05 PO 0032 Metoprolol Tartrate 12.5 MG BID 10/05 1000 AC 10/05 PO 0952 Metoprolol Tartrate 12.5 MG BID 10/04 2228 DC PO Morphine Sulfate 2 MG Q8P PRN 10/04 2100 AC 10/05 IV 0953 Omeprazole 40 MG DAILY AC 10/05 0700 AC 10/05 PO 0622 Oxybutynin Chloride 2.5 MG DAILY 10/05 1000 AC 10/05 PO 0951 Sertraline HCl 50 MG BID 10/04 2228 AC 10/05 PO 0952 Review of Systems Review of Systems: No fever. No chills. No rash. No tremor. All other systems were reviewed, and were noted to be negative. 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 Home Services at Home: None Smoking Status: Never Smoked ETOH Use: occasional use Exam & Diagnostic Data Vital Signs and I&O Vital Signs Date Time Temp Pulse Resp B/P B/P Pulse O2 O2 Flow FiO2 Mean Ox Delivery Rate 10/05 0952 74 111/55 10/05 0855 97.7 74 16 111/55 96 Room Air 10/04 2217 98.4 88 20 110/70 95 10/04 2143 97.6 81 20 146/64 97 Room Air 10/04 2016 96.8 80 20 140/63 96 Room Air 10/04 1735 97.3 80 20 144/67 97 Room Air 10/04 1502 97.5 84 18 132/67 98 Room Air Intake & Output 10/05 1600 10/05 0800 10/05 0000 10/04 1600 10/04 0000 Intake Total 0 Output Total 150 500 Balance -150 -500 Intake, Oral 0 Output, Urine 150 500 Patient 99 lb 15.99 oz 94 lb 15.99 oz Weight Weight Reported by Patient Reported by Patient Measurement Method Physical Exam: Gen: The patient is in no acute distress HEENT: Normal nose, ears, and oropharynx. Pupils equal bilaterally. Conjunctiva normal. Neck: Supple with no JVD, no masses, and no thyromegaly Lungs: Clear to auscultation with normal respiratory effort Heart: RRR, S1, S2, 1/6 systolic murmur. No peripheral edema, 1+ pulses in the lower extremities bilaterally Abdomen: Soft, nontender, no masses. No hepatomegaly. No splenomegaly Extremities: No clubbing or cyanosis. Normal muscle strength in the upper and lower extremities Skin: Normal skin turgor with no skin ulcers or lesions noted. Neuro: Cranial nerves intact. Sensation intact Psych: Alert and oriented 3 with appropriate affect Labs/Johnnie Results: Laboratory Tests 10/05 10/05 0632 0035 Chemistry Sodium (137 - 145 mmol/L) 139 Potassium (3.5 - 5.1 mmol/L) 4.6 Chloride (98 - 107 mmol/L) 105 Carbon Dioxide (22 - 30 mmol/L) 25 Anion Gap (5 - 16) 9 BUN (7 - 17 mg/dL) 27 H Creatinine (0.5 - 1.0 mg/dL) 0.8 Estimated GFR (>60 ml/min) > 60 BUN/Creatinine Ratio (7 - 25 %) 33.8 H Magnesium (1.6 - 2.3 mg/dL) 1.4 L Iron (37 - 170 ug/dL) 28 L TIBC (265 - 497 ug/dL) 326 Ferritin (11.1 - 264 ng/mL) 20.5 Total Bilirubin (0.2 - 1.3 mg/dL) 0.4 Direct Bilirubin (< 0.4 mg/dL) 0.2 AST (14 - 36 U/L) 35 ALT (9 - 52 U/L) 48 Alkaline Phosphatase (<127 U/L) 166 H Troponin I (< 0.11 ng/ml) 0.06 0.09 Total Protein (6.3 - 8.2 g/dL) 5.8 L Albumin (3.5 - 5.0 g/dL) 3.2 L Hematology CBC w Diff NO MAN DIFF REQ WBC (4.8 - 10.8 /CUMM) 5.8 RBC (4.20 - 5.40 /CUMM) 3.07 L Hgb (12.0 - 16.0 G/DL) 9.8 L Hct (37 - 47 %) 29.0 L MCV (81.0 - 99.0 FL) 94.5 MCH (27.0 - 31.0 PG) 31.8 H RDW (11.5 - 14.5 %) 15.2 H Plt Count (130 - 400 /CUMM) 185 MPV (7.4 - 10.4 FL) 9.1 Gran % (42.2 - 75.2 %) 73.3 Lymphocytes % (20.5 - 51.1 %) 14.8 L Monocytes % (1.7 - 9.3 %) 9.1 Eosinophils % (0 - 5 %) 2.3 Basophils % (0.0 - 2.0 %) 0.5 Absolute Granulocytes (1.4 - 6.5 /CUMM) 4.2 Absolute Lymphocytes (1.2 - 3.4 /CUMM) 0.8 L Absolute Monocytes (0.10 - 0.60 /CUMM) 0.5 Absolute Eosinophils (0.0 - 0.7 /CUMM) 0.1 Absolute Basophils (0.0 - 0.2 /CUMM) 0 PUBS MCHC (33.0 - 37.0 G/DL) 33.6 10/04 10/04 1845 1835 Chemistry Sodium (137 - 145 mmol/L) 141 Potassium (3.5 - 5.1 mmol/L) 4.0 Chloride (98 - 107 mmol/L) 105 Carbon Dioxide (22 - 30 mmol/L) 24 Anion Gap (5 - 16) 12 BUN (7 - 17 mg/dL) 25 H Creatinine (0.5 - 1.0 mg/dL) 0.8 Estimated GFR (>60 ml/min) > 60 BUN/Creatinine Ratio (7 - 25 %) 31.3 H Glucose (65 - 99 mg/dL) 90 Calcium (8.4 - 10.2 mg/dL) 9.1 Magnesium (1.6 - 2.3 mg/dL) 1.3 L Total Bilirubin (0.2 - 1.3 mg/dL) 0.4 AST (14 - 36 U/L) 58 H ALT (9 - 52 U/L) 59 H Alkaline Phosphatase (<127 U/L) 190 H Troponin I (< 0.11 ng/ml) 0.11 *H Total Protein (6.3 - 8.2 g/dL) 6.4 Albumin (3.5 - 5.0 g/dL) 3.7 Globulin (1.9 - 4.2 gm/dL) 2.7 Albumin/Globulin Ratio (1.1 - 2.2 %) 1.4 Hematology CBC w Diff NO MAN DIFF REQ WBC (4.8 - 10.8 /CUMM) 9.1 RBC (4.20 - 5.40 /CUMM) 3.17 L Hgb (12.0 - 16.0 G/DL) 10.0 L Hct (37 - 47 %) 30.2 L MCV (81.0 - 99.0 FL) 95.3 MCH (27.0 - 31.0 PG) 31.6 H RDW (11.5 - 14.5 %) 15.2 H Plt Count (130 - 400 /CUMM) 203 MPV (7.4 - 10.4 FL) 8.8 Gran % (42.2 - 75.2 %) 72.7 Lymphocytes % (20.5 - 51.1 %) 15.0 L Monocytes % (1.7 - 9.3 %) 9.6 H Eosinophils % (0 - 5 %) 2.4 Basophils % (0.0 - 2.0 %) 0.3 Absolute Granulocytes (1.4 - 6.5 /CUMM) 6.6 H Absolute Lymphocytes (1.2 - 3.4 /CUMM) 1.4 Absolute Monocytes (0.10 - 0.60 /CUMM) 0.9 H Absolute Eosinophils (0.0 - 0.7 /CUMM) 0.2 Absolute Basophils (0.0 - 0.2 /CUMM) 0 PUBS MCHC (33.0 - 37.0 G/DL) 33.2 Urines Urine Color (YEL,AMB,STR) YEL Urine Clarity (CLEAR) CLEAR Urine pH (5.0 - 8.0) 6.0 Ur Specific [place] (1.001 - 1.035) 1.010 Urine Protein (NEG,<30 MG/DL) NEG Urine Ketones (NEG) NEG Urine Nitrite (NEG) NEG Urine Bilirubin (NEG) NEG Urine Urobilinogen (0.1 - 1.0 EU/dl) 0.2 Ur Leukocyte Esterase (NEG) NEG Ur Microscopic EXAM NOT REQUIRED Urine Hemoglobin (NEG) NEG Urine Glucose (N MG/DL) NEG Diagnostic Data EKG Results EKG tracing is reviewed, and reveals normal sinus rhythm at 87, premature atrial complexes Other Results CT scan of the pelvis: Essentially nondisplaced left inferior pubic ramus fracture. There are no additional fractures. Assessment/Plan Assessment/Plan Assessment: 1. Paroxysmal atrial fibrillation, currently in sinus rhythm 2. Left anterior pubic ramus fracture 3. Mild troponin elevation, likely secondary to demand ischemia. No evidence of acute coronary syndrome. Troponin levels decreasing 4. Cardiac catheterization 2011 showed no obstructive CAD Recommendations: * Continue metoprolol * Echocardiogram * Would monitor for an additional 24 hours in telemetry. Consult Acknowledgment - Thank you for your consult request.
--- NOTE | 2016-10-05 14:08 | Discharge Summary ---
Visit Information Visit Dates Admission Date: 10/04/16 Discharge Date: 10/07/16 Hospital Course Course Attending Physician: MYRA CHAPARRO MD Primary Care Physician: JOHN RUIZ MD Consulting Request: 1 Consulting Specialty: Cardiology Consulting Physician: Yobani Benjamin MD Reason for Consult: elevated troponin Consulting Request: 2 Consulting Specialty: Orthopedics Consulting Physician: Ayo Ott MD Reason for Consult: left pubic rami fracture Hospital Course: This is 89-year-old woman with a past medical history of colon cancer status post chemotherapy and radiation, GERD, neuropathy pain, remote history of A. fib not on AC due to hx of GI bleed, scleroderma, arthritis, gastroparesis presents to the ED with complaint of left hip pain after she had a witnessed mechanical fall in the [employer] on day of admission. She tripped over her shoe and fell on the left side. Denieed any chest pain, palpitations, diaphoresis, any seizure- like activity, loss of consciousness, headache, decreased by mouth intake for the past few days prior to [facility]. She was able to get up and ambulate around on her own with cane. Vitals at the time of admission blood pressure 132/67, respiratory rate 18, pulse 84, afebrile saturating 98% on room air. On physical exam, She noted alert and oriented 3 and in no acute distress, lying comfortably in bed. HEENT revealed PERRLA, dry mucous membranes. Examination of the neck revealed no JVD of about 5 cm, no cervical lymphadenopathy. Cardiovascular exam pertinent for normal S1, S2, no murmurs rubs or gallops appreciated. Chest was clear to auscultation bilaterally. Abdominal exam is benign with abdomen soft, nontender, nondistended with normal bowel sounds heard in all 4 quadrants. Examination of the lower extremities did not reveal any edema. There was tenderness to palpation around the left lateral hip, no erythema, or bruise identified. There is no shortening of the left limb compared to right,a and sensation and motor strength are preserved 5/5 . Neuro exam was grossly unremarkable. Labs pertinent for her normocytic anemia with an H&H of 10.0/30.2, normal white blood cell count of 9100, platelet count 203,000. Serum chemistries reveal a sodium of 141, potassium of 4.0, by carb of 24, anion gap of 12, BUN 25 and creatinine of 0.8. LFTs pertinent for total bili of 0.4, AST/ALT of 58/59 and alkaline phosphatase of 190. First set of troponin elevated at 0.11. UA was unremarkable. X-ray of the left hip, femur, knee revealed acute fracture of the inferior pubic ramus, intact left femur intramedullary paris with compression screw, questionable irregularity of the left acetabulum, intact left knee with mild to moderate degenerative changes of the right hip. Last echocardiogram was done in December 2011 which revealed a hypokinetic apex with mildly abnormal left ventricular ejection fraction estimated at 40-45%, mild right atrial dilatation, no aortic stenosis and mild pulmonary hypertension with an estimated RV systolic pressure of 58 mmHg Patient admitted to telemetry floor and following problems were address during course of hospital stay. #Left inferior pubic ramus fracture status post mechanical fall X-rays and pelvic CT revealed nondisplaced left inferior pubic ramus fracture. Orthopedic surgery consulted, recommended conservative management. Pain managed with IV medication and transitioned PO. Monitored H&H and noted stable. Continued on vitamin D supplements. Physical therapy consulted who recommended home physical therapy. #Elevated troponin secondary to demand ischemia Patient noted having elevated troponin of 0.11 on admission. Patient denied any chest pain or no EKG changes noted. Her troponin trended down, cardiology consulted who thought her elevated troponin was secondary to demand ischemia. Patient monitored on telemetry, no arrhythmia noted. #History of atrial fibrillation not on anticoagulation Patient remained in normal sinus rhythm on telemetry. Heart rate controlled with metoprolol 12.5 twice a day. Patient was not on anticoagulation due to history of GI bleed in the past. # Hypomagnesemia Noted low magnesium level, which was repleted keep Mg > 2 #Normocytic anemia Most likely secondary to iron deficiency and malnutrition. remained stable during course of hospital stay. #Transaminitis Noted transaminitis in absence of any RUQ abdominal pain or jaundice. Noted chronically elevated in the past and on repeat lab noted improved to baseline. #Urinary incontinence Continued oxybutryn - DVT prophylaxis On heparin 5000units 3 times a day subcutaneous Diet Heart healthy CODE STATUS DNR/DNI Allergies: Coded Allergies: Sulfa (Sulfonamide Antibiotics) (N/V 10/04/16) Pertinent Lab Results: Laboratory Tests 10/05/16 0632: Anion Gap 9, Estimated GFR > 60, BUN/Creatinine Ratio 33.8 H, Total Bilirubin 0.4, Direct Bilirubin 0.2, AST 35, ALT 48, Alkaline Phosphatase 166 H, Troponin I 0.06, Total Protein 5.8 L, Albumin 3.2 L, CBC w Diff NO MAN DIFF REQ, RBC 3.07 L, MCV 94.5, MCH 31.8 H, RDW 15.2 H, MPV 9.1, Gran % 73.3, Lymphocytes % 14.8 L, Monocytes % 9.1, Eosinophils % 2.3, Basophils % 0.5, Absolute Granulocytes 4.2, Absolute Lymphocytes 0.8 L, Absolute Monocytes 0.5, Absolute Eosinophils 0.1, Absolute Basophils 0, PUBS MCHC 33.6 10/05/16 0035: Magnesium 1.4 L, Iron 28 L, TIBC 326, Ferritin 20.5, Troponin I 0.09 10/04/16 1845: Urine Color YEL, Urine Clarity CLEAR, Urine pH 6.0, Ur Specific [place] 1.010, Urine Protein NEG, Urine Ketones NEG, Urine Nitrite NEG, Urine Bilirubin NEG, Urine Urobilinogen 0.2, Ur Leukocyte Esterase NEG, Ur Microscopic EXAM NOT REQUIRED, Urine Hemoglobin NEG, Urine Glucose NEG 10/04/16 1835: Anion Gap 12, Estimated GFR > 60, BUN/Creatinine Ratio 31.3 H, Glucose 90, Calcium 9.1, Magnesium 1.3 L, Total Bilirubin 0.4, AST 58 H, ALT 59 H, Alkaline Phosphatase 190 H, Troponin I 0.11 *H, Total Protein 6.4, Albumin 3.7, Globulin 2.7, Albumin/Globulin Ratio 1.4, CBC w Diff NO MAN DIFF REQ, RBC 3.17 L, MCV 95.3, MCH 31.6 H, RDW 15.2 H, MPV 8.8, Gran % 72.7, Lymphocytes % 15.0 L, Monocytes % 9.6 H, Eosinophils % 2.4, Basophils % 0.3, Absolute Granulocytes 6.6 H, Absolute Lymphocytes 1.4, Absolute Monocytes 0.9 H, Absolute Eosinophils 0.2, Absolute Basophils 0, PUBS MCHC 33.2 Disposition Summary Disposition Principal Diagnosis: 1. Left nondisplaced pubic ramus fracture 2. Hymagnesemia 3. Demand ischemia Additional Diagnosis: 1. Paroxismal afib 2. Hx of GI bleed 3. Normocytic anemia 4. Overactive bladder 5. Transaminitis Discharge Disposition: home health services Discharge Instructions General Discharge Information Code Status: Do Not Resucitate/Intubat Patient's Diet: Heart healthy diet Patient's Activity: As tolerated continue physical therapy with full weight bearing Follow-Up Instructions/Appts: Please follow up with PCP Dr. Ruiz within a week of discharge. Please follow up with cardiology Dr. Benjamin within a week of discharge. Please follow up with orthopedic surgery Dr. Ott if continues to have Lt. hip pain due to left pubic ramus fracture. Medications at Discharge Discharge Medications: Continue taking these medications: Sertraline HCl (Sertraline HCl) 50 MG TABLET 1 Tablet ORAL TWICE DAILY Qty = 180 Comments: Last Taken: 10/07/16 Time: 9 AM Metoprolol Tartrate (Metoprolol Tartrate) 25 MG TABLET 0.5 Tablet ORAL TWICE DAILY Qty = 90 Comments: Last Taken: 10/07/16 Time: 9 AM Dexlansoprazole (Dexilant) 60 MG MAYTE.BP 1 Capsule ORAL DAILY Qty = 90 Comments: Last Taken: 10/07/16 Time: 6:30 AM PRILOEC GIVEN Gabapentin (Gabapentin) 300 MG CAPSULE 1 Capsule ORAL DAILY Qty = 90 Comments: Last Taken: 10/07/16 Time: 9 AM Magnesium Oxide (Magnesium) 400 MG CAPSULE 1 Capsule ORAL DAILY Comments: NOT GIVEN Ergocalciferol (Vitamin D2) (Vitamin D2) 2,000 UNIT TABLET 1 Tablet ORAL TWICE DAILY Comments: Last Taken: 10/07/16 Time: 9 AM Calcium Carbonate (TUMS) 200 MG CALCIUM (500 MG) TAB.CHEW 1 Tablet ORAL DAILY as needed for GI Days = 30 Comments: NOT GIVEN Acetaminophen (Acetaminophen) 500 MG TABLET 1 Tablet ORAL EVERY SIX HOURS as needed for PAIN Comments: NOT GIVEN Loteprednol Etabonate (Lotemax) 0.5 % DROPS.GEL 1 DROP Right Eye Q6H Qty = 1 Comments: NOT GIVEN Solifenacin Succinate (Vesicare) 5 MG TABLET 5 Milligram ORAL DAILY Comments: Last Taken: 10/07/16 Time: 9 AM DIPTROPAN GIVEN Start taking the following new medications: Oxycodone HCl/Acetaminophen (Percocet 5-325 MG Tablet) 5 MG-325 MG TABLET 1 Tablet ORAL EVERY 4 HOURS NEEDED as needed for PAIN SCALE 4-6 (MODERATE ) Qty = 30 No Refills Comments: Last Taken: 10/06/16 Time: 9:30 PM Polyethylene Glycol 3350 (Miralax) 17 GRAM/DOSE POWDER 17 Gram ORAL DAILY as needed for constipation Qty = 30 No Refills Comments: NOT GIVEN Sennosides/Docusate Sodium (Senna Plus Tablet) 8.6 MG-50 MG TABLET 1 Tablet ORAL TWICE DAILY as needed for CONSTIPATION Qty = 60 No Refills Comments: NOT GIVEN Copies To: SARA BLANCHARD,JOHN Newton; POPPY BLANCHARD,Dom POLANCO; ASIF BLANCHARD,AYO Attending MD Review Statement Documenting Attending: KRYSTA BLANCHARD,MYRA
--- NOTE | 2016-10-05 15:51 | Patient Discharge Instructions ---
Discharge Instructions General Discharge Information You were seen/treated for: left pubic ramus(hip) fracture demand ischemia low magnesium Watch for these problems: pain left hip, difficulty ambulating Special Instructions: Please follow up with PCP Dr. Peters within a week of discharge. Please follow up with cardiology Dr. Benjamin within a week of discharge. Please follow up with orthopedic surgery Dr. Ott if continues to have Lt. hip pain due to left pubic ramus fracture. Diet Recommended Diet: Heart Healthy Activity Additional ACTIVITY Info: as tolerated PT with full weight bearing Acute Coronary Syndrome Inclusion Criteria At DC or during hospital stay patient has or had the following: ACS DIAGNOSIS No Discharge Core Measures Meds if any: Prescribed or Continued at Discharge Meds if any: NOT Prescribed or Continued at Discharge Congestive Heart Failure Inclusion Criteria At DC or during hospital stay patient has or had the following: CHF DIAGNOSIS No Discharge Core Measures Meds if any: Prescribed or Continued at Discharge Meds if any: NOT Prescribed or Continued at Discharge Cerebrovascular accident Inclusion Criteria At DC or during hospital stay patient has or had the following: CVA/TIA Diagnosis No Discharge Core Measures Meds if any: Prescribed or Continued at Discharge Meds if any: NOT Prescribed or Continued at Discharge Venous thromboembolism Inclusion Criteria VTE Diagnosis No VTE Type NONE VTE Confirmed by (Test) NONE Discharge Core Measures - Per Current guidelines, there needs to be overlap - treatment for the first 5 days of Warfarin therapy. - If discharged on Warfarin prior to 5 days of - overlap therapy, the patient will need to be - assessed for post discharge needs including - *Post discharge parental anticoagulation - *Warfarin and/or parental anticoagulation education - *Follow up date to check INR post discharge At least 5 days overlap therapy as Inpatient No Meds if any: Prescribed or Continued at Discharge Note: Overlap Therapy is Warfarin and Anticoagulant Meds if any: NOT Prescribed or Continued at Discharge
[2016-10-05 16:32] VITALS: BP 112/73
--- NOTE | 2016-10-05 20:19 | ECHOCARDIOGRAM REPORT ---
RASHIDA MALLORY Age: 89 : 1925 Gender: F Exam Date: 10/05/2016 09:14 Exam Location: [place] Ht (in): Wt (lb): BSA: BP: 110 / 70 Ordering Physician: RACHAEL FERNANDES MD Referring Physician: RACHAEL FERNANDES MD Technologist: Jose Lazcano [facility] [[email or web address]] Room Number: 185-2 Indications: MYOCARDIAL ISCHEMIA/AK Rhythm: Sinus Technical Quality: Fair FINDINGS Left Ventricle Normal global left ventricular size, wall thickness, systolic function with no obvious regional wall motion abnormalities. Normal left ventricular ejection fraction estimated at 55-60%. Right Ventricle Normal right ventricular size and function. Right Atrium Normal right atrial size. Left Atrium Moderate left atrial dilatation. Mitral Valve Mitral valve thickened. Mild mitral regurgitation. Aortic Valve Trileaflet aortic valve. Diffuse thickening (sclerosis) of the aortic valve cusps without reduced excursion. No aortic stenosis. No aortic regurgitation. Tricuspid Valve Tricuspid valve not well visualized, grossly normal. Mild tricuspid regurgitation. Pulmonic Valve Pulmonic valve not well visualized, grossly normal. Mild pulmonic regurgitation. Pericardium No pericardial effusion. Great Vessels Normal size aortic root and proximal ascending aorta. CONCLUSIONS 1. 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 2. Mitral leaflet thickening is present with fibrosis of the chordal structures and mild mitral insufficiency with moderate left atrial enlargement. 3. There is no pericardial fluid present. 4. The left ventricular chamber size and systolic function appear normal with no resting wall motion abnormalities. 5. The right heart structures appear normal with mild tricuspid and pulmonic insufficiency and no evidence of pulmonary hypertension. 6. Mild left ventricular diastolic dysfunction is present Yobani Benjamin M.D. (Electronically Signed) Final Date: 05 October 2016 20:19 MEASUREMENTS (Male / Female) Normal Values 2D ECHO LV Diastolic Diameter PLAX 4.3 cm 4.2 - 5.9 / 3.9 - 5.3 cm LV Systolic Diameter PLAX 2.9 cm 2.1 - 4.0 cm LV Fractional Shortening PLAX 32.6 % 25 - 46 % LV Ejection Fraction 2D Teich 61.2 % IVS Diastolic Thickness 0.8 cm LVPW Diastolic Thickness 0.9 cm LV Relative Wall Thickness 0.4 RV Internal Dim ED PLAX 2.0 cm 1.9 - 3.8 cm LVOT Diameter 1.8 cm Aortic Root Diameter 2.8 cm LA Systolic Diameter LX 3.1 cm 3.0 - 4.0 / 2.7 - 3.8 cm LA Volume 55.0 cm 18 - 58 / 22 - 52 cm Ascending Aorta Diameter 3.3 cm DOPPLER AV Peak Velocity 159.0 cm/s AV Peak Gradient 10.1 mmHg AV Mean Velocity 113.0 cm/s AV Mean Gradient 6.0 mmHg AV Velocity Time Integral 34.9 cm LVOT Peak Velocity 85.0 cm/s LVOT Peak Gradient 2.9 mmHg LVOT Mean Velocity 54.5 cm/s LVOT Mean Gradient 1.0 mmHg LVOT Velocity Time Integral 27.4 cm LVOT Stroke Volume 69.7 cm AV Area Cont Eq vti 2.0 cm AV Area Cont Eq pk 1.4 cm MV Peak Velocity 99.3 cm/s MV Peak Gradient 3.9 mmHg MV Mean Velocity 70.5 cm/s MV Mean Gradient 2.0 mmHg Mitral E Point Velocity 79.0 cm/s Mitral A Point Velocity 93.3 cm/s Mitral E to A Ratio 0.8 MV PHT Velocity 106.0 cm/s MV Deceleration [place] 395.0 cm/s MV Pressure Half Time 80.5 ms MV Area PHT 2.7 cm MV Deceleration Time 391.0 ms TR Peak Velocity 269.0 cm/s TR Peak Gradient 28.9 mmHg Right Atrial Pressure 5.0 mmHg Pulmonary Artery Systolic Pressu 33.9 mmHg Right Ventricular Systolic Press 33.9 mmHg PV Peak Velocity 95.1 cm/s PV Peak Gradient 3.6 mmHg PV Mean Velocity 65.7 cm/s PV Mean Gradient 2.0 mmHg PV Velocity Time Integral 21.7 cm LV E' Lateral Velocity 11.1 cm/s Mitral E to LV E' Lateral Ratio 7.1 LV E' Septal Velocity 8.8 cm/s Mitral E to LV E' Septal Ratio 9.0
[2016-10-06 00:15] VITALS: BP 108/52
--- NOTE | 2016-10-06 07:43 | PN- Housestaff ---
ASHER BLANCHARD,JAS 10/06/16 0735: Subjective Follow-up For: Nondisplaced Left pubic ramus fracture Atrial fibrillation Normocytic anemia Complaints: complains of left hip pain 5-6 out of 10 radiating to left knee Tele-Events Since Last Visit: Normal sinus rhythm Subjective: Patient is comfortably lying in bed. Reports slow but significant improvement in her pain currently 5-6 out of 10 with current pain regimen. Able to sleep well. Denies any chest pain, headache, nausea, vomiting, abdominal pain, diarrhea, fever or urinary symptoms. Review of Systems Constitutional: Reports: see HPI. Objective Last 24 Hrs of Vital Signs/I&O Vital Signs Date Time Temp Pulse Resp B/P B/P Pulse O2 O2 Flow FiO2 Mean Ox Delivery Rate 10/06 0015 98.4 84 18 108/52 87 Room Air 10/06 0000 94 Room Air 10/05 2131 87 118/50 10/05 1632 98.7 77 18 112/73 95 Room Air 10/05 1059 Room Air Room Air 10/05 0952 74 111/55 10/05 0855 97.7 74 16 111/55 96 Room Air Intake & Output 10/06 0800 10/06 0000 10/05 1600 Intake Total 600 490 Output Total Balance 600 490 Intake, IV 250 10 Intake, Oral 350 480 Number 0 2 Bowel Movements Physical Exam General Appearance: Alert, Oriented X3, Cooperative, No Acute Distress Skin: No Rashes Skin Temp/Moisture Exam: Warm/Dry Sepsis Skin Exam (color): Normal for Ethnicity HEENT: Atraumatic, PERRLA, EOMI, Mucous Membr. moist/pink Neck: Supple Cardiovascular: Normal S1, Normal S2, No Murmurs Lungs: Normal Air Movement, noted bibasilar faint crackles Abdomen: Normal Bowel Sounds, Soft, No Tenderness Neurological: Normal Speech, Strength at 5/5 X4 Ext, Normal Tone, Sensation Intact, Cranial Nerves 3-12 NL Extremities: No Edema, Normal Pulses Vascular: Pulses Symmetrical Current Medications: Current Medications Sig/Simón Start time Last Medication Dose Route Stop Time Status Admin Acetaminophen 650 MG Q6P PRN 10/04 2099 AC PO Acetaminophen 1,000 MG Q6P PRN 10/04 2099 DC IV Calcium Carbonate 500 MG DAILY NEEDED PRN 10/04 2229 AC PO Cholecalciferol 2,000 IU BID 10/04 2226 AC 10/05 PO 2128 Docusate Sodium 100 MG DAILY 10/05 1000 AC PO Gabapentin 300 MG DAILY 10/05 1000 AC 10/05 PO 0952 Heparin Sodium 5,000 UNIT Q8 10/04 2199 AC 10/06 (Porcine) SC 0650 Magnesium Sulfate 1 GM Q2H 10/05 1530 DC 10/05 Dextrose/Water 100 ML IV 10/05 1929 1818 Melatonin 5 MG AT BEDTIME 10/05 220 AC 10/05 PO 2127 Metoprolol Tartrate 12.5 MG BID 10/05 1000 AC 10/05 PO 2131 Morphine Sulfate 2 MG Q8P PRN 10/04 2100 AC 10/05 IV 0953 Omeprazole 40 MG DAILY AC 10/05 0700 AC 10/06 PO 0649 Oxybutynin Chloride 2.5 MG DAILY 10/05 1000 AC 10/05 PO 0951 Oxycodone/ 1 TAB Q4P PRN 10/05 1145 AC 10/06 Acetaminophen PO 0654 Polyethylene Glycol 17 GM DAILY 10/06 1000 AC PO Senna/Docusate Sodium 1 TAB BID PRN 10/05 1545 AC PO Sertraline HCl 50 MG BID 10/05 2227 AC 10/05 PO 2128 Orders ECHO Findings: 1. 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 2. Mitral leaflet thickening is present with fibrosis of the chordal structures and mild mitral insufficiency with moderate left atrial enlargement. 3. There is no pericardial fluid present. 4. The left ventricular chamber size and systolic function appear normal with no resting wall motion abnormalities. 5. The right heart structures appear normal with mild tricuspid and pulmonic insufficiency and no evidence of pulmonary hypertension. 6. Mild left ventricular diastolic dysfunction is present. Normal left ventricular ejection fraction estimated at 55-60%. Assessment/Plan Assessment: This is 89-year-old female with past medical history of paroxysmal A. fib not on anticoagulation due to history of GI bleed, scleroderma, anemia, transaminitis presented from home after sustaining a mechanical fall resulting in left pubic rami fracture, found to have elevated troponin without any chest pain or EKG changes. 1. Left pubic rami fracture - Continue pain management, pain is better controlled with Percocet. Will adjust the medication to make patient comfortable. At this point patient doesn' t want to add any pain regimen. - As per orthopedic surgery, no surgical intervention, conservative management - Physical therapy recommended home physical therapy upon discharge - Out of bed to chair - Ambulation as tolerated - Continue supplemental vitamin D 2. Paroxysmal A. fib - Currently in normal sinus rhythm - Continue home dose metoprolol for rate control - No anticoagulation due to history of GI bleed 3. Elevated troponin -Secondary to demand ischemia. Remains asymptomatic in normal sinus rhythm on panel monitor 4. History of depression Continue Zoloft 5. Normocytic Anemia - History of previous GI bleed from AVMs -H&H stable, pending today's H&H 6. DVT prophylaxis subcutaneous heparin 7. DNR/DNI Problem List: 1. Inferior pubic ramus fracture 2. Elevated troponin 3. Paroxysmal atrial fibrillation 4. Scleroderma Pain Ratin Pain Location: Left hip Pain Goal: Pain 4 or less Pain Plan: Percocet for moderate pain IV morphine for severe pain Tylenol for mild pain Tomorrow's Labs & Rationales: None DVT/Prophylaxis: pharmacological Consulting Request: Consulting Specialty: Orthopedics Consulting Physician: Roe Ott MD Reason for Consult: left pubic rami fracture MYRA CHAPARRO MD 10/06/160: Attending MD Review Statement Attending Statement Attending MD Statement: examined this patient, discuss w/resident/PA/DEPUTY FELONY CLERK, agreed w/resident/PA/DEPUTY FELONY CLERK, reviewed EMR data (avail) Attending Assessment/Plan: 89F PMH left hip fracture s/p repair in 2011, scleroderma with esophageal dysmotility, paroxysmal atrial flutter, colorectal cancer s/p chemotherapy/ radiation (2000), GERD admitted for mechanical fall while at [employer] without preceding symptoms or loss of consciouss resulting in left inferior pubic ramus fracture that is stable. Patient reports pain when she moves but otherwise has no complaints and pain is relatively well controlled. She reports chronic difficulty swallowing and doesn 't eat much because of this. Troponin was mildly elevated on admission but has peaked without EKG changes or telemetry events. Patient denies ever having chest pain or palpitations. Pain is 4-6 today, but patient is ok with this level of pain and does not want any more pain medications beyond what she is already receiving. 1. Left inferior pubic ramus fracture, closed, stable 2. Demand ischemia 3. Mechanical fall 4. Scleroderma 5. Esophageal dysmotility Plan - Continue on telemetry - Follow cardiology recommendations - Discontinue IV Morphine - Start Percocet 1 tab q4h PRN moderate pain, 2 tab q4h severe pain - Start Senna and Colace to prevent opioid induced constipation - Continue home medications - Follow orthopedic recommendations - PT eval - DVT PPx - Patient would benefit from another day of inpatient physical therapy, anticipated discharge tomorrow home with home services
[2016-10-06 08:35] LABS: ABSOLUTE BASOPHIL COUNT 0 /CUMM (0.0-0.2); ABSOLUTE EOSINOPHIL COUNT 0.2 /CUMM (0.0-0.7); ABSOLUTE GRANULOCYTE CT 3.4 /CUMM (1.4-6.5); ABSOLUTE LYMPH COUNT 1.5 /CUMM (1.2-3.4); ABSOLUTE MONOCYTE COUNT 0.5 /CUMM (0.10-0.60); BASOPHIL % 0.4 % (0.0-2.0); EOSINOPHIL % 3.9 % (0-5); GRANULOCYTE % 60.3 % (42.2-75.2); HEMATOCRIT 28.1 % (37-47); MEAN CORPUSCULAR HGB 31.8 PG (27.0-31.0); MEAN CORPUSCULAR HGB CONC 33.2 G/DL (33.0-37.0); MEAN CORPUSCULAR VOLUME 95.7 FL (81.0-99.0); MEAN PLATELET VOLUME 9.4 FL (7.4-10.4); PLATELET COUNT 174 /CUMM (130-400); RBC DISTRIBUTION WIDTH 15.2 % (11.5-14.5); RED BLOOD CELL CT 2.94 /CUMM (4.20-5.40); WHITE BLOOD CELL COUNT 5.7 /CUMM (4.8-10.8)
[2016-10-06 09:04] VITALS: BP 112/44
--- NOTE | 2016-10-06 12:56 | PN- Cardiology ---
Subjective Subjective: The patient reports that she is feeling better. No shortness of breath. No chest pain. No palpitations. No diaphoresis. No nausea or vomiting. No lightheadedness or dizziness. Objective Vital Signs and I&Os Vital Signs Date Time Temp Pulse Resp B/P B/P Pulse O2 O2 Flow FiO2 Mean Ox Delivery Rate 10/06 0904 99.0 69 16 112/44 98 Room Air 10/06 0838 84 108/52 10/06 0015 98.4 84 18 108/52 87 Room Air 10/06 0000 94 Room Air 10/05 2131 87 118/50 10/05 1632 98.7 77 18 112/73 95 Room Air Intake & Output 10/06 1600 10/06 0800 10/06 0000 10/05 1600 10/05 0810/05 0000 Intake Total 240 600 490 0 Output Total 300 150 500 Balance -60 600 490 -150 -500 Intake, IV 250 10 Intake, Oral 240 350 480 0 Number 1 0 2 Bowel Movements Output, Urine 300 150 500 Patient 99 lb 0.01 oz 99 lb 15.99 oz Weight Weight Reported by Patient Measurement Method Physical Exam: Gen: The patient is in no acute distress HEENT: Normal nose, ears, and oropharynx. Pupils equal bilaterally. Conjunctiva normal. Neck: Supple with no JVD, no masses, and no thyromegaly Lungs: Clear to auscultation with normal respiratory effort Heart: RRR, S1, S2, 1/6 systolic murmur. No peripheral edema, 1+ pulses in the lower extremities bilaterally Abdomen: Soft, nontender, no masses. No hepatomegaly. No splenomegaly Extremities: No clubbing or cyanosis. Normal muscle strength in the upper and lower extremities Skin: Normal skin turgor with no skin ulcers or lesions noted. Neuro: Cranial nerves intact. Sensation intact Current Medications: Current Medications Sig/Simón Start time Last Medication Dose Route Stop Time Status Admin Acetaminophen 650 MG Q6P PRN 10/04 2100 AC PO Calcium Carbonate 500 MG DAILY NEEDED PRN 10/04 2230 AC PO Cholecalciferol 2,000 IU BID 10/04 2226 AC 10/06 PO 0838 Docusate Sodium 100 MG DAILY 10/05 1000 AC PO Gabapentin 300 MG DAILY 10/05 1000 AC 10/06 PO 0838 Heparin Sodium 5,000 UNIT Q8 10/04 2199 AC 10/06 (Porcine) SC 0650 Magnesium Sulfate 1 GM Q2H 10/05 1530 DC 10/05 Dextrose/Water 100 ML IV 10/05 1928 1818 Melatonin 5 MG AT BEDTIME 10/05 2200 AC 10/05 PO 2128 Metoprolol Tartrate 12.5 MG BID 10/05 1000 AC 10/06 PO 0838 Morphine Sulfate 2 MG Q8P PRN 10/04 2100 AC 10/05 IV 0953 Omeprazole 40 MG DAILY AC 10/05 0700 AC 10/06 PO 0649 Oxybutynin Chloride 2.5 MG DAILY 10/05 1000 AC 10/06 PO 0838 Oxycodone/ 1 TAB Q4P PRN 10/05 1145 AC 10/06 Acetaminophen PO 1059 Polyethylene Glycol 17 GM DAILY 10/06 1000 AC PO Senna/Docusate Sodium 1 TAB BID PRN 10/05 1545 AC PO Sertraline HCl 50 MG BID 10/04 2228 AC 10/06 PO 0838 Results Last 48 Hrs of Labs/Mics: Laboratory Tests 10/06/16 0628: Anion Gap 8, Estimated GFR 59 L, BUN/Creatinine Ratio 28.9 H, Magnesium 2.0, CBC w Diff NO MAN DIFF REQ, RBC 2.94 L, MCV 95.7, MCH 31.8 H, RDW 15.2 H, MPV 9.4, Gran % 60.3, Lymphocytes % 26.6, Monocytes % 8.8, Eosinophils % 3.9, Basophils % 0.4, Absolute Granulocytes 3.4, Absolute Lymphocytes 1.5, Absolute Monocytes 0.5, Absolute Eosinophils 0.2, Absolute Basophils 0, PUBS MCHC 33.2 10/05/16 0632: Anion Gap 9, Estimated GFR > 60, BUN/Creatinine Ratio 33.8 H, Total Bilirubin 0.4, Direct Bilirubin 0.2, AST 35, ALT 48, Alkaline Phosphatase 166 H, Troponin I 0.06, Total Protein 5.8 L, Albumin 3.2 L, CBC w Diff NO MAN DIFF REQ, RBC 3.07 L, MCV 94.5, MCH 31.8 H, RDW 15.2 H, MPV 9.1, Gran % 73.3, Lymphocytes % 14.8 L, Monocytes % 9.1, Eosinophils % 2.3, Basophils % 0.5, Absolute Granulocytes 4.2, Absolute Lymphocytes 0.8 L, Absolute Monocytes 0.5, Absolute Eosinophils 0.1, Absolute Basophils 0, PUBS MCHC 33.6 10/05/16 0035: Magnesium 1.4 L, Iron 28 L, TIBC 326, Ferritin 20.5, Troponin I 0.09 10/04/16 1845: Urine Color YEL, Urine Clarity CLEAR, Urine pH 6.0, Ur Specific [place] 1.010, Urine Protein NEG, Urine Ketones NEG, Urine Nitrite NEG, Urine Bilirubin NEG, Urine Urobilinogen 0.2, Ur Leukocyte Esterase NEG, Ur Microscopic EXAM NOT REQUIRED, Urine Hemoglobin NEG, Urine Glucose NEG 10/04/16 1835: Anion Gap 12, Estimated GFR > 60, BUN/Creatinine Ratio 31.3 H, Glucose 90, Calcium 9.1, Magnesium 1.3 L, Total Bilirubin 0.4, AST 58 H, ALT 59 H, Alkaline Phosphatase 190 H, Troponin I 0.11 *H, Total Protein 6.4, Albumin 3.7, Globulin 2.7, Albumin/Globulin Ratio 1.4, CBC w Diff NO MAN DIFF REQ, RBC 3.17 L, MCV 95.3, MCH 31.6 H, RDW 15.2 H, MPV 8.8, Gran % 72.7, Lymphocytes % 15.0 L, Monocytes % 9.6 H, Eosinophils % 2.4, Basophils % 0.3, Absolute Granulocytes 6.6 H, Absolute Lymphocytes 1.4, Absolute Monocytes 0.9 H, Absolute Eosinophils 0.2, Absolute Basophils 0, PUBS MCHC 33.2 Recent Imaging Studies: Echocardiogram: 1. 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 2. Mitral leaflet thickening is present with fibrosis of the chordal structures and mild mitral insufficiency with moderate left atrial enlargement. 3. There is no pericardial fluid present. 4. The left ventricular chamber size and systolic function appear normal with no resting wall motion abnormalities. 5. The right heart structures appear normal with mild tricuspid and pulmonic insufficiency and no evidence of pulmonary hypertension. 6. Mild left ventricular diastolic dysfunction is present Assessment/Plan Assessment/Plan Assessment: 1. Paroxysmal atrial fibrillation, currently in sinus rhythm 2. Left anterior pubic ramus fracture 3. Mild troponin elevation, likely secondary to demand ischemia. No evidence of acute coronary syndrome. Troponin levels decreasing 4. Cardiac catheterization 2011 showed no obstructive CAD Plan: * Continue current cardiac medications. * Discontinue telemetry. * Follow up with Dr. Benjamin in one week after discharge. Continue telemetry? No
[2016-10-06 15:30] VITALS: BP 108/60
[2016-10-06 23:39] VITALS: BP 114/60
--- NOTE | 2016-10-07 07:31 | PN- Housestaff ---
ASHER BLANCHARD,JSA 10/07/16 0723: Subjective Follow-up For: Left pubic ramus fracture Atrial fibrillation Anemia Complaints: left hip pain 4/10 on ambulation, much better controlled than before Tele-Events Since Last Visit: Off telemetry Subjective: Patient is comfortably lying in bed. She denies any active complaints. She remains afebrile. Her left hip pain is much better controlled gets up to 4/10 in severity on ambulation. She had good sleep and has good appetite. Denies any abdominal pain chest pain, shortness of breath, nausea, vomiting. Review of Systems Constitutional: Reports: see HPI. Objective Last 24 Hrs of Vital Signs/I&O Vital Signs Date Time Temp Pulse Resp B/P B/P Pulse O2 O2 Flow FiO2 Mean Ox Delivery Rate 10/06 2339 98.9 80 20 114/60 95 Room Air 10/06 2135 76 118/46 10/06 1530 98.2 66 18 108/60 95 Room Air 10/06 0904 99.0 69 16 112/44 98 Room Air 10/06 0838 84 108/52 Intake & Output 10/07 0800 10/07 0000 10/06 1600 Intake Total 100 600 720 Output Total 3 Balance 100 597 720 Intake, IV 0 Intake, Oral 100 600 720 Number 1 1 Bowel Movements Output, Other 3 Patient 99 lb 0.01 oz Weight Physical Exam General Appearance: Alert, Oriented X3, Cooperative, No Acute Distress Skin: No Rashes Skin Temp/Moisture Exam: Warm/Dry Sepsis Skin Exam (color): Normal for Ethnicity HEENT: Atraumatic, PERRLA, EOMI, Mucous Membr. moist/pink Neck: Supple, No JVD Cardiovascular: Regular Rate, Normal S1, Normal S2, No Murmurs Lungs: Clear to Auscultation, Normal Air Movement Abdomen: Normal Bowel Sounds, Soft, No Tenderness Neurological: Normal Speech, Strength at 5/5 X4 Ext, Normal Tone, Sensation Intact, Cranial Nerves 3-12 NL Extremities: No Edema, Normal Pulses Vascular: Normal Pulses, Pulses Symmetrical Current Medications: Current Medications Sig/Simón Start time Last Medication Dose Route Stop Time Status Admin Acetaminophen 650 MG Q6P PRN 10/04 2099 AC PO Calcium Carbonate 500 MG DAILY NEEDED PRN 10/04 2229 AC PO Cholecalciferol 2,000 IU BID 10/04 2226 AC 10/06 PO 213 Docusate Sodium 100 MG DAILY 10/05 1000 AC PO Gabapentin 300 MG DAILY 10/05 1000 AC 10/06 PO 0838 Heparin Sodium 5,000 UNIT Q8 10/04 2199 AC 10/07 (Porcine) SC 0625 Melatonin 5 MG AT BEDTIME 10/05 2199 AC 10/06 PO 213 Metoprolol Tartrate 12.5 MG BID 10/05 1000 AC 10/06 PO 213 Morphine Sulfate 2 MG Q8P PRN 10/04 2100 DC 10/05 IV 0953 Omeprazole 40 MG DAILY AC 10/05 0700 AC 10/07 PO 0625 Oxybutynin Chloride 2.5 MG DAILY 10/05 1000 AC 10/06 PO 0838 Oxycodone/ 2 TAB Q4P PRN 10/06 1545 AC Acetaminophen PO Oxycodone/ 1 TAB Q4P PRN 10/05 1145 AC 10/06 Acetaminophen PO 213 Patient Medication 1 ED .STK-MED ONE 10/06 1355 OK Teaching ED 10/06 1356 Polyethylene Glycol 17 GM DAILY 10/06 1000 AC PO Senna/Docusate Sodium 1 TAB BID PRN 10/05 1545 AC PO Sertraline HCl 50 MG BID 10/05 2227 AC 10/06 PO 213 Last 24 Hrs of Lab/Johnnie Results Last 24 Hrs of Labs/Mics: Laboratory Tests 10/06 0628 Chemistry Sodium (137 - 145 mmol/L) 137 Potassium (3.5 - 5.1 mmol/L) 4.6 Chloride (98 - 107 mmol/L) 104 Carbon Dioxide (22 - 30 mmol/L) 24 Anion Gap (5 - 16) 8 BUN (7 - 17 mg/dL) 26 H Creatinine (0.5 - 1.0 mg/dL) 0.9 Estimated GFR (>60 ml/min) 59 L BUN/Creatinine Ratio (7 - 25 %) 28.9 H Magnesium (1.6 - 2.3 mg/dL) 2.0 Hematology CBC w Diff NO MAN DIFF REQ WBC (4.8 - 10.8 /CUMM) 5.7 RBC (4.20 - 5.40 /CUMM) 2.94 L Hgb (12.0 - 16.0 G/DL) 9.4 L Hct (37 - 47 %) 28.1 L MCV (81.0 - 99.0 FL) 95.7 MCH (27.0 - 31.0 PG) 31.8 H RDW (11.5 - 14.5 %) 15.2 H Plt Count (130 - 400 /CUMM) 174 MPV (7.4 - 10.4 FL) 9.4 Gran % (42.2 - 75.2 %) 60.3 Lymphocytes % (20.5 - 51.1 %) 26.6 Monocytes % (1.7 - 9.3 %) 8.8 Eosinophils % (0 - 5 %) 3.9 Basophils % (0.0 - 2.0 %) 0.4 Absolute Granulocytes (1.4 - 6.5 /CUMM) 3.4 Absolute Lymphocytes (1.2 - 3.4 /CUMM) 1.5 Absolute Monocytes (0.10 - 0.60 /CUMM) 0.5 Absolute Eosinophils (0.0 - 0.7 /CUMM) 0.2 Absolute Basophils (0.0 - 0.2 /CUMM) 0 PUBS MCHC (33.0 - 37.0 G/DL) 33.2 Assessment/Plan Assessment: This is 89-year-old female with past medical history of paroxysmal A. fib not on anticoagulation due to history of GI bleed, scleroderma, anemia, transaminitis presented from home after sustaining a mechanical fall resulting in left pubic rami fracture, found to have elevated troponin without any chest pain or EKG changes. 1. Left pubic rami fracture - Continue pain management, pain is much better controlled with Percocet. - As per orthopedic surgery, no surgical intervention, conservative management - Physical therapy recommended home physical therapy upon discharge - Out of bed to chair - Ambulation as tolerated - Continue supplemental vitamin D 2. Paroxysmal A. fib - Currently in normal sinus rhythm, off telemetry - Continue home dose metoprolol for rate control - No anticoagulation due to history of GI bleed 3. Elevated troponin -Secondary to demand ischemia. Remains asymptomatic in normal sinus rhythm on case monitor 4. 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 - Nutrition recommendation appreciated 4. History of depression Continue Zoloft 5. Normocytic Anemia - History of previous GI bleed from AVMs - H&H stable 6. DVT prophylaxis subcutaneous heparin 7. DNR/DNI Problem List: 1. Inferior pubic ramus fracture 2. Elevated troponin 3. Paroxysmal atrial fibrillation 4. Scleroderma Pain Ratin Pain Location: left hip Pain Goal: Pain 4 or less Pain Plan: percocet Tomorrow's Labs & Rationales: none DVT/Prophylaxis: pharmacological Consulting Request: Consulting Specialty: Orthopedics Consulting Physician: Roe Ott MD Reason for Consult: left pubic rami fracture Discharge Plan Discharge Disposition: home Stable for Discharge? Yes Anticipated Discharge (Day): today If Discharged Today/In 24 Hrs: enter [facility] discharge ord, W-10/discharge paper done, DC summary done, CMR done MYRA CHAPARRO MD 10/07/16 1135: Attending MD Review Statement Attending Statement Attending MD Statement: examined this patient, discuss w/resident/PA/PROCESS HELPER, agreed w/resident/PA/PROCESS HELPER, reviewed EMR data (avail) Attending Assessment/Plan: 89F PMH left hip fracture s/p repair in 2011, scleroderma with esophageal dysmotility, paroxysmal atrial flutter, colorectal cancer s/p chemotherapy/ radiation (2000), GERD admitted for mechanical fall while at [facility] without preceding symptoms or loss of consciouss resulting in left inferior pubic ramus fracture that is stable. Patient reports pain when she moves but otherwise has no complaints and pain is relatively well controlled. She reports chronic difficulty swallowing and doesn 't eat much because of this. Troponin was mildly elevated on admission but has peaked without EKG changes or telemetry events. Patient denies ever having chest pain or palpitations. Pain is more controlled today and patient feels well. 1. Left inferior pubic ramus fracture, closed, stable 2. Demand ischemia 3. Mechanical fall 4. Scleroderma 5. Esophageal dysmotility Plan - Stable for discharge home - Follow cardiology recommendations - Continue home medications - Start Senna and Colace to prevent opioid induced constipation - Continue home medications - Follow orthopedic recommendations - PT eval - DVT PPx - Patient would benefit from another day of inpatient physical therapy, anticipated discharge tomorrow home with home services
[2016-10-07] MEDS ORDERED: PERCOCET 5-3251 EACH PO (07:35)
[2016-10-07 08:58] VITALS: BP 105/45
[2016-10-07 09:10] VITALS: BP 105/45
[2016-10-07] MEDS ORDERED: MIRALAX119 GM PO (10:06)
[2016-10-07] MEDS ORDERED: SENNA PLUS TAB1 EACH PO (10:06)
== END 2016-10-07 11:20 | disposition home health service (06) | DRG 536 ==
LOC: ERH 14:39 → ERHI 21:03 → 1NO 21:03 → ENRESERV 21:33 → 1NO 22:01
PROVIDERS: Internal Medicine; Internal Medicine Infectious Disease; Physician Assistant; ADMIT Internal Medicine
DX: S32.592A Other specified fracture of left pubis, initial encounter for closed fracture (principal); I24.8 Other forms of acute ischemic heart disease; M34.9 Systemic sclerosis, unspecified; E83.42 Hypomagnesemia; I48.0 Paroxysmal atrial fibrillation; D64.9 Anemia, unspecified; K22.4 Dyskinesia of esophagus; I73.00 Raynaud's syndrome without gangrene; Z66 Do not resuscitate; M81.0 Age-related osteoporosis without current pathological fracture; F32.9 Major depressive disorder, single episode, unspecified; W10.9XXA Fall (on) (from) unspecified stairs and steps, initial encounter; Z91.81 History of falling; Y93.9 Activity, unspecified; Y92.009 Unspecified place in unspecified non-institutional (private) residence as the place of occurrence of the external cause; I25.10 Atherosclerotic heart disease of native coronary artery without angina pectoris; Z80.0 Family history of malignant neoplasm of digestive organs; Z80.1 Family history of malignant neoplasm of trachea, bronchus and lung; K21.9 Gastro-esophageal reflux disease without esophagitis; Z85.038 Personal history of other malignant neoplasm of large intestine; I10 Essential (primary) hypertension
CPT/HCPCS: 1NSP; 36415; 73502-LT; 73552; 73562-LT; 81003; 82436; 93005; 93010; 93306; 97110-GO; 97112-GO; 97116-GO; 97161-GP; 97530-GO; 99291; J1644